=== PATIENT | female | born 1980 | race Caucasian/White ===

== ENCOUNTER 2022-01-12 02:56 | Day surgery (SDC) | payer BC, SELFPAY ==
[2021-12-31 15:03] VITALS: BMI 40.7
--- NOTE | 2022-01-10 12:26 | WPDANESEPPF ---
Anes - Initial Pre Proc Eval Procedure: Operation Date: 01/12/22 11:30 Proposed Procedures p Screening Colonoscopy - Misael Valiente MD Date/Time: 01/10/22 12:26 Surgeon: Misael Valiente MD Pre Op Diagnosis: family hx of colon ca, neoplasm screening Patient Data Age: 41 Gender: F Height: 1.7 m Weight: 118 kg Allergies Allergy/AdvReac Type Severity Reaction Status Date / Time adhesive tape Allergy Intermediate Rash Verified 01/12/22 10:55 NSAIDS (Non-Steroidal Allergy Unknown Unknown Verified 01/12/22 10:55 Anti-Inflamma Home Medications Medication Instructions Recorded Confirmed Type levothyroxine 25 mcg tablet 25 mcg PO DAILY 10/03/19 12/31/21 History jhcnszxe-hgdyzknb-ygqu 45 mg-folic 1 cap PO DAILY #90 cap 11/27/19 12/31/21 Rx acid 800 mcg-vit K 120 mcg capsule rizatriptan 10 mg tablet See Rx Instructions PO .COMPLEX #9 01/16/21 12/31/21 Rx tablet omeprazole 20 mg capsule,delayed 20 mg PO DAILY #90 cap 01/27/21 12/31/21 Rx release methocarbamol 750 mg tablet 750 mg PO QID PRN #120 tablet 04/03/21 12/31/21 Rx hydrocodone 5 mg-acetaminophen 325 1 tablet PO Q6-8H PRN #45 tablet 08/05/21 12/31/21 Rx mg tablet gabapentin 100 mg capsule 100 mg PO TID cap 08/15/21 12/31/21 History buspirone 15 mg tablet See Rx Instructions .ROUTE 09/08/21 12/31/21 Rx .COMPLEX #270 tablet fluoxetine 40 mg capsule See Rx Instructions .ROUTE 10/03/21 12/31/21 Rx .COMPLEX #90 cap clindamycin 1 %-benzoyl peroxide 5 1 applic TOPICAL BID #25 g 10/30/21 12/31/21 Rx % topical gel bupropion HCl [Wellbutrin XL] 150 mg PO DAILY 12/31/21 12/31/21 History Patient hx anesthesia problems: none Family hx anesthesia problems: none Results Review: All pre-operative results and documents have been reviewed as part of the pre-operative evaluation. [facility] Past Medical History Medical History (Updated 01/11/22 @ 10:43 by Misael Valiente MD) Anxiety and depression Body mass index (BMI) of 40.1 to 44.9 in adult Hypothyroidism, unspecified Irregular heartbeat Mitral valve regurgitation Tobacco abuse Surgical History Surgical History (Updated 01/10/22 @ 12:27 by Jake Harris DO) History of appendectomy History of cholecystectomy History of lumbar fusion History of sleeve gastrectomy Family History Family History Father Family history of heart disease in male family member before age 55 Depression Family history of alcoholism Grandparent Family history of heart disease in male family member before age 55 Family history of cataracts Family history of congestive heart failure Diabetes mellitus Mother Depression Family history of arthritis Uterine carcinoma Sibling Asthma Breast cancer Cervical cancer Sibling Narcolepsy Social History Social History Smoking packs per day: 1 Smoking cigarettes per day: 20.0 Years smoked: 5 Smoking pack-years: 5.00 Smoking status: Current every day smoker Tobacco type: cigarettes Second hand tobacco smoke exposure: Yes Alcohol intake: former Substance use: current Substance use type: marijuana Living arrangements: alone 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 Gender identity (if verbalized by the patient): Female Spiritual care concerns: No Agree to blood products: Yes Anes - Eval Final PreProcedure Day of Procedure 01/10/22 12:26 Patient weight: morbidly obese Heart: regular rate and rhythm Lungs: clear to auscultation and normal air movement Airway: Mallampati scale class II Neurological: alert and oriented Last oral intake: >/= 8 hours ASA classification: III Emergent: no Anesthetic plan: proceed Anesthesia type and monitoring: general GIVS and standard monitoring Results Review: All pre-operative results and documents have been reviewed as part of
--- NOTE | 2022-01-11 10:41 | PM.HPGS ---
History of Present Illness History of Present Illness Consent: Risks, benefits, and alternatives have been discussed and questions answered. Patient agrees to proceed with procedure. Chief complaint: family hx of colon ca, neoplasm screening Narrative: Nereida Regan is a 41 year old female referered for colon cancer screening. She has a family history of colon cancer, her sister who was a few years older recently from stage IV colon cancer Review of Systems Review of Systems: All systems reviewed & are unremarkable except as noted in HPI and below PMFSH Past Medical History Medical History (Updated 01/11/22 @ 10:43 by Misael Valiente MD) Anxiety and depression Body mass index (BMI) of 40.1 to 44.9 in adult Hypothyroidism, unspecified Irregular heartbeat Mitral valve regurgitation Tobacco abuse Surgical History Surgical History (Updated 01/10/22 @ 12:27 by Jake Harris DO) History of appendectomy History of cholecystectomy History of lumbar fusion History of sleeve gastrectomy Family History Family History Father Family history of heart disease in male family member before age 55 Depression Family history of alcoholism Grandparent Family history of heart disease in male family member before age 55 Family history of cataracts Family history of congestive heart failure Diabetes mellitus Mother Depression Family history of arthritis Uterine carcinoma Sibling Asthma Breast cancer Cervical cancer Sibling Narcolepsy Social History Social History Smoking packs per day: 1 Smoking cigarettes per day: 20.0 Years smoked: 5 Smoking pack-years: 5.00 Smoking status: Current every day smoker Tobacco type: cigarettes Second hand tobacco smoke exposure: Yes Alcohol intake: former Substance use: current Substance use type: marijuana Living arrangements: alone 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 Gender identity (if verbalized by the patient): Female Spiritual care concerns: No Agree to blood products: Yes Meds Home Medications and Allergies Home Medications Medication Instructions Recorded Confirmed Type levothyroxine 25 mcg tablet 25 mcg PO DAILY 10/03/19 12/31/21 History wyqvellu-vomijsqe-iaze 45 mg-folic 1 cap PO DAILY #90 cap 11/27/19 12/31/21 Rx acid 800 mcg-vit K 120 mcg capsule rizatriptan 10 mg tablet See Rx Instructions PO .COMPLEX #9 01/16/21 12/31/21 Rx tablet omeprazole 20 mg capsule,delayed 20 mg PO DAILY #90 cap 01/27/21 12/31/21 Rx release methocarbamol 750 mg tablet 750 mg PO QID PRN #120 tablet 04/03/21 12/31/21 Rx hydrocodone 5 mg-acetaminophen 325 1 tablet PO Q6-8H PRN #45 tablet 08/05/21 12/31/21 Rx mg tablet gabapentin 100 mg capsule 100 mg PO TID cap 08/15/21 12/31/21 History buspirone 15 mg tablet See Rx Instructions .ROUTE 09/08/21 12/31/21 Rx .COMPLEX #270 tablet fluoxetine 40 mg capsule See Rx Instructions .ROUTE 10/03/21 12/31/21 Rx .COMPLEX #90 cap clindamycin 1 %-benzoyl peroxide 5 1 applic TOPICAL BID #25 g 10/30/21 12/31/21 Rx % topical gel bupropion HCl [Wellbutrin XL] 150 mg PO DAILY 12/31/21 12/31/21 History Allergies Allergy/AdvReac Type Severity Reaction Status Date / Time adhesive tape Allergy Intermediate Rash Verified 01/12/22 10:55 NSAIDS (Non-Steroidal Allergy Unknown Unknown Verified 01/12/22 10:55 Anti-Inflamma Exam Const: General: alert Orientation/consciousness: patient oriented x3 Resp: Auscultation: clear to auscultation bilaterally Cardio: Rhythm: regular rhythm GI: GI Palp: Yes Soft to palpation and No Tenderness to palpation present (GI) Neuro: General: patient oriented x3 Assessment and Plan Assessment and plan (1) Colon cancer screening: Code(s): Z12.11 - Encounter for screening for malig
[2022-01-12 10:56] VITALS: BP 120/84; PULSE 79; RESP 16; TEMP 36.1; O2SAT 96
[2022-01-12] MEDS: LACTATED RINGERS 1,000 ML 150 ML IV CONT (11:11)
[2022-01-12 11:58] VITALS: BP 96/44; PULSE 64; RESP 16; O2SAT 95
[2022-01-12 12:08] VITALS: BP 91/54; PULSE 63; RESP 16; O2SAT 95
[2022-01-12 12:17] VITALS: BP 107/54; PULSE 72; RESP 16; O2SAT 98
== END 2022-01-12 12:36 | disposition home or self-care (01) ==
PROVIDERS: PCP Family Medicine; Visit Provider Internal Medicine Gastroenterology
PROC: 0DJD8ZZ Inspection of Lower Intestinal Tract, Via Natural or Artificial Opening Endoscopic (ICD-10-PCS; CPT 45378; principal; 2022-01-12 11:30)
DX: Z12.11 Encounter for screening for malignant neoplasm of colon (principal); K63.5 Polyp of colon; K57.30 Diverticulosis of large intestine without perforation or abscess without bleeding; Z80.0 Family history of malignant neoplasm of digestive organs; E03.9 Hypothyroidism, unspecified; F41.8 Other specified anxiety disorders; Z98.1 Arthrodesis status; Z98.84 Bariatric surgery status; F17.210 Nicotine dependence, cigarettes, uncomplicated; E66.01 Morbid (severe) obesity due to excess calories; Z68.37 Body mass index [BMI] 37.0-37.9, adult
CPT/HCPCS: 45385; 45380; 88305; J2704; J7120

== ENCOUNTER 2024-04-03 14:41 | Outpatient (CLI) | payer OTHER, SELFPAY ==
--- NOTE | ~2024-04-03 | XR_ITS ---
3 VIEWS LUMBAR SPINE Ordering provider: JEMMA Vizcarra History: . S39.92XA - Unspecified injury of lower back, initial enco... . Comparison: None. FINDINGS: VERTEBRAL BODIES:Minimal anterolisthesis at the level of L4-L5. No visible fracture or subluxation. Postoperative changes of the level of L4-L5. Fracture of the screws of the level of L4 and L5 is note d. DISK SPACES: Disc spacer at the level of L4-L5. Degenerative disc disease at the level of L5-S1. Narr owing of the disc at L2-L3 and L3-L4. SOFT TISSUES: Normal. IMPRESSION: No acute osseous abnormality lumbar spine. Fracture of the screws at the level of L4 and L5. Reviewed, dictated and finalized at location A.
== END 2024-04-03 14:42 ==
PROVIDERS: PCP Family Medicine; Visit Provider Nurse Practitioner Family
DX: S39.92XA Unspecified injury of lower back, initial encounter (principal); X58.XXXA Exposure to other specified factors, initial encounter
CPT/HCPCS: 72114

== ENCOUNTER 2025-01-24 01:10 | Day surgery (SDC) | payer BC, SELFPAY ==
[2025-01-23 10:35] VITALS: BMI 43.9
--- OUTSIDE RECORDS SUMMARY | 2025-01-24 01:14 | XMS_ITS | Encounter Summary ---
Author Organization [facility] Address [address] [place] [address] Phone Care Team Providers Care Operating Room Orderly Name Role Phone Arnulfo Monreal MD Unavailable [phone] Ruiz Live MD Primary Care Provider [phone] Andrew Christian MD Primary Care Provider [phone] Reason for Visit * Reason Comments Medication Refill Encounter Details Date Type Department Care Team (Late Contact Info) Description 11/28/2022 Refill [facility] - Family Medicine [facility] [address] [place] [address] Imtiaz Perez APRN, LEAD VULCANIZING OPERATOR [address] [address] Medication Refill Social History Tobacco Use Types Packs/Day Years Used Date Smoking Tobacco: Every Day Cigarettes 1 6 Smokeless Tobacco: Never Comments:pt states quit abou t a month ago Alcohol Use Standard Drinks/Week Comments Not Currently 3 (1 standard drink = 0.6 oz pur e alcohol) occasionally Education Answer Date Recorded What is the highest level of school you have completed or the highest degree you have received? 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 No / Unsure 12/01/2022 2:30 PM DECK ENGINE OPERATOR documented as of this encounter Miscellaneous Notes * Telephone Encounter - Kathy Villa RN - 11/30/2022 9:21 AM CST SIG has changed - need new Rx for continuation Medication failed the protocol, provider to review and approve the medication order if appropriate. Requested Prescriptions Pending Prescriptions Disp Refills varenicline (CHANTIX) 1 MG Tablet [Pharmacy Med Name: VARENICLINE 1 MG TABLET] 30 Tablet 1 Sig: Ttake 0.5 tablet by mouth twice daily thereafter. Not Delegated - Smoking Deterrents Protocol Failed - 11/28/2022 10:12 AM Failed - This refill cannot be delegated Passed - Visit with relevant provider in past 6 months or upcoming 90 days Recent Visits Date Type Provider Dept 11/09/22 Office Visit Ruiz Live MD [facility] 11/03/22 Office Visit Imtiaz Perez APRN, [facility] 10/21/22 Office Visit Imtiaz Perez APRN, [facility] 09/24/22 Office Visit Ruiz Live MD [facility] 08/28/22 Office Visit Ruiz Live MD [facility] 07/30/22 Office Visit Ruiz Live MD [facility] 07/09/22 Office Visit Ruiz Live MD [facility] 06/25/22 Office Visit Imtiaz Perez APRN, [facility] 06/18/22 Office Visit Ruiz Live MD [facility] 06/09/22 Office Visit Imtiaz Perez FLIGHT OPERATIONS SPECIALIST, LEAD VULCANIZING OPERATOR [facility] Showing recent visits within past 182 days and meeting all other requirements Today's Visits Date Type Provider Dept 11/30/22 Appointment Ruiz Live MD [facility] Showing today's visits and meeting all other requirements Future Appointments No visits were found meeting these conditions. Showing future appointments within next 90 days and meeting all other requirements ENGINE OPERATOR documented in this encounter Plan of Treatment Not on file documented as of this encounter Visit Diagnoses Diagnosis Tobacco abuse Tobacco use disorder documented in this encounter Additional Health Concerns Infection Onset Date Last Indicated Resolved Time Respiratory Rule Out - RPA 12/06/2022 12/06/2022 0 12/06/2022 3:46 PM DECK ENGINE OPERATOR documented as of this encounter Care Teams Operating Room Orderly Relationship Specialty Start Date End Date Ruiz Live MD [address] [place] [address] PCP - General Family Medicine 02/17/22 10/28/24 Andrew Christian MD [address] [place], [place] [id number] PCP - General Family Medicine 10/29/24 Arnulfo Monreal MD [address] [place] [address] Obstetrics & Gynecology 02/17/22 documented as of this encounter
--- OUTSIDE RECORDS SUMMARY | 2025-01-24 01:14 | XMS_ITS ---
Author Organization [facility] Address [address] [facility] [address] [place] [address] Care Team Providers Care Tank Truck Loader Name Role Phone Trey Crow Unavailable [phone] REASON FOR VISIT Wants to see you Social History Sex Assigned At : Social History Observation Description Sex Assigned At Female Encounters Encounter Location Date Provider Diagnosis [email or web address] [address] [facility] [address] [place] [address] 01/05/2025 Trey Crow Plan Of Treatment No Information Progress Notes * RAMÓN HUDOB: 1 (44 yo F)Acc No.[id number]:01/05/2025 Patient: RAMÓN FRITZ :1980 A ge:44 Y S ex:Female Address:[address] [place], [address] * true * Date: Generated for Jag rojas/Jd/eTransmitting on: 0 01/24/2025 01:14 AM CDT
--- OUTSIDE RECORDS SUMMARY | 2025-01-24 01:14 | XMS_ITS | Encounter Summary ---
Author Organization [facility] Address [address] [place] [address] Phone Care Team Providers Care Director Of Corporate Marketing Name Role Phone Arnulfo Monreal MD Unavailable [phone] Ruiz Live MD Primary Care Provider [phone] Andrew Christian MD Primary Care Provider [phone] Reason for Visit * Reason Comments Medication Refill Encounter Details Date Type Department Care Team (Late Contact Info) Description 01/07/2023 Refill [facility] Medical Group - Family Medicine [facility] [address] [place] [id number] Ruiz Live MD [address] [place] [address] Medication Refill Social History Tobacco Use Types Packs/Day Years Used Date Smoking Tobacco: Every Day Cigarettes 0.5 6 Smokeless Tobacco: Never Comments:pt states quit abou t a month ago Alcohol Use Standard Drinks/Week Comments Not Currently 3 (1 standard drink = 0.6 oz pur e alcohol) occasionally Education Answer Date Recorded What is the highest level of school you have completed or the highest degree you have received? Master's degree (e.g., MA, MS, Can, MEd, TRAINING EXECUTIVE, CHAVEZ) 02/17/2022 Sexually Active Control Partners Comments [...] suspected to have Coronavirus/COVID-19? No / Unsure 01/10/2023 7:47 PM CDT documented as of this encounter Miscellaneous Notes * Telephone Encounter - Flora Molina RN - 01/07/2023 8:35 AM CDT Medication failed the protocol, provider to review and approve the medication order if appropriate. Requested Prescriptions Pending Prescriptions Disp Refills traZODone (DESYREL) 100 MG Tablet [Pharmacy Med Name: TRAZODONE 100 MG TABLET] 90 Tablet 0 Sig: Take 1 Tablet by mouth nightly. Serotonin Modulators (6 Month Refill Only) Protocol Failed - 01/07/2023 12:01 AM Failed - Patient has established therapy with Serotonin Modulators for at least 6 months Passed - Visit with relevant provider in past 6 months or upcoming 90 days Recent Visits Date Type Provider Dept 12/22/22 Telemedicine Imtiaz Perez APRN, [facility] 12/10/22 Office Visit Ruiz Live MD [facility] 11/30/22 Office Visit Ruiz Live MD [facility] 11/09/22 Office Visit Ruiz Live MD [facility] 11/03/22 Office Visit Imtiaz Perez APRN, [facility] 10/21/22 Office Visit Imtiaz Perez APRN, [facility] 09/24/22 Office Visit Ruiz Live MD [facility] 08/28/22 Office Visit Ruiz Live MD [facility] 07/30/22 Office Visit Ruiz Live MD [facility] 07/09/22 Office Visit Ruiz Live MD [facility] Showing recent visits within past 182 days and meeting all other requirements Future Appointments Date Type Provider Dept 03/01/23 Appointment Ruiz Live MD [facility] Showing future appointments within next 90 days and meeting all other requirements Passed - Has an encounter in the past 6 months with a depression or anxiety visit diagnosis Passed - No PRN Use for Trazodone documented in this encounter Plan of Treatment Not on file documented as of this encounter Visit Diagnoses Not on filedocumented in this encounter Care Teams Director Of Corporate Marketing Relationship Specialty Start Date End Date Ruiz Live MD [address] [address] PCP - General Family Medicine 02/17/22 10/28/24 Andrew Christian MD [address] [place] [address] PCP - General Family Medicine 10/29/24 Arnulfo Monreal MD [address] [place] [address] Obstetrics & Gynecology 02/17/22 documented as of this encounter
--- OUTSIDE RECORDS SUMMARY | 2025-01-24 01:14 | XMS_ITS | Encounter Summary ---
Author Organization [facility] Address [address] [place] [address] Phone Care Team Providers Care Wedding Florist Name Role Phone Arnulfo Monreal MD Unavailable [phone] Ruiz Live MD Primary Care Provider [phone] Andrew Christian MD Primary Care Provider [phone] Reason for Visit * Reason Comments Medication Refill Encounter Details Date Type Department Care Team (Late Contact Info) Description 10/25/2022 Refill [facility] Medical Group - Family Medicine [facility] [address] [place] [id number] Ruiz Live MD [address] [place] [address] Medication Refill Social History Tobacco Use Types [...] Master's degree (e.g., MA, MS, Can, MEd, BUSINESS EDUCATION PROFESSOR, CHAVEZ) 02/17/2022 Sexually Active Control Partners Comments [...] suspected to have Coronavirus/COVID-19? No / Unsure 10/21/2022 9:27 AM MIXER SLAGMAN documented as of this encounter Miscellaneous Notes * Telephone Encounter - Kathy Villa RN - 10/27/2022 11:39 AM CST Medication failed the protocol, provider to review and approve the medication order if appropriate. Requested Prescriptions Pending Prescriptions Disp Refills pregabalin (LYRICA) 150 MG Capsule [Pharmacy Med Name: PREGABALIN 150 MG CAPSULE] 60 Capsule Sig: TAKE 1 CAPSULE BY MOUTH TWICE A DAY Not Delegated - Anticonvulsants Excluding Benzodiazepines Protocol Failed - 10/25/2022 5:33 PM Failed - This refill cannot be delegated Passed - Visit with relevant provider in past 12 months or upcoming 90 days Recent Visits Date Type Provider Dept 10/21/22 Office Visit Imtiaz Perez APRN, [facility] 09/24/22 Office Visit Ruiz Live MD [facility] 08/28/22 Office Visit Ruiz Live MD [facility] 07/30/22 Office Visit Ruiz Live MD [facility] 07/09/22 Office Visit Ruiz Live MD [facility] 06/25/22 Office Visit Imtiaz Perez APRN, [facility] 06/18/22 Office Visit Ruiz Live MD [facility] 06/09/22 Office Visit Imtiaz Perez APRN, [facility] 05/21/22 Office Visit Imtiaz Perez APRN, [facility] 03/30/22 Office Visit Ruiz Live MD [facility] Showing recent visits within past 365 days and meeting all other requirements Future Appointments Date Type Provider Dept 11/30/22 Appointment Ruiz Live MD [facility] Showing future appointments within next 90 days and meeting all other requirements cyclobenzaprine (FLEXERIL) 10 MG Tablet [Pharmacy Med Name: CYCLOBENZAPRINE 10 MG TABLET] 90 Tablet Sig: TAKE 1 TABLET BY MOUTH THREE TIMES A DAY NEEDED FOR MUSCLE SPASMS Not Delegated - Muscle Relaxants Protocol Failed - 10/25/2022 5:33 PM Failed - This refill cannot be delegated Passed - Visit with relevant provider in past 12 months or upcoming 90 days Recent Visits Date Type Provider Dept 10/21/22 Office Visit Imtiaz Perez APRN, [facility] 09/24/22 Office Visit Ruiz Live MD [facility] 08/28/22 Office Visit Ruiz Live MD [facility] 07/30/22 Office Visit Ruiz Live MD [facility] 07/09/22 Office Visit Ruiz Live MD [facility] 06/25/22 Office Visit Imtiaz Perez APRN, [facility] 06/18/22 Office Visit Ruiz Live MD [facility] 06/09/22 Office Visit Itmiaz Perez APRN, [facility] 05/21/22 Office Visit Imtiaz Perez APRN, [facility] 03/30/22 Office Visit Ruiz Live MD [facility] Showing recent visits within past 365 days and meeting all other requirements Future Appointments Date Type Provider Dept 11/30/22 Appointment Ruiz Live MD [facility] Showing future appointments within next 90 days and meeting all other requirements R SLAGMAN documented in this encounter Plan of Treatment Not on file documented as of this encounter Visit Diagnoses Diagnosis Lumbar radiculopathy Thoracic or lumbosacral neuritis or radiculitis, unspecified Degenerative disc disease, lumbar Degeneration of lumbar or lumbosacral intervertebral disc documented in this encounter Additional Health Concerns Infection Onset Date Last Indicated Resolved Time Respiratory Rule Out - RPA 12/06/2022 12/06/2022 0 12/06/2022 3:46 PM MIXER SLAGMAN documented as of this encounter Care Teams Wedding Florist Relationship Specialty Start Date End Date Ruiz Live MD [address] [place] [address] PCP - General Family Medicine 02/17/22 10/28/24 Andrew Christian MD [address] [place] [address] PCP - General Family Medicine 10/29/24 Arnulfo Monreal MD [address] [place] [address] Obstetrics & Gynecology 02/17/22 documented as of this encounter
--- OUTSIDE RECORDS SUMMARY | 2025-01-24 01:14 | XMS_ITS | Encounter Summary ---
Author Organization [facility] Address [address] [place] [address] Care Team Providers Care Individual Pension Adviser Name Role Phone Andrew Christian MD Primary Care Provider [phone] Ruiz Live MD Primary Care Provider [phone] Malgorzata Oliver NP Primary Care Provider [phone] Encounter Details Date Type Department Care Team (Late st Contact Info) Description 07/10/2021 Telephone [facility] [address] [place] [address] Yonathan, Arpita, RT Social History Tobacco Use Types Packs/Day Years Used Date Smoking Tobacco: Every Day Cigarettes 0.3 9.2 Started: 2016 Smokeless Tobacco: Never Alcohol Use Standard Drinks/Week Comments Yes 4 (1 standard drink = 0.6 oz pur e alcohol) rarely Comments No Sex and Gender Information Value Date Recorded Sex Assigned at Not on file Legal Sex Female 1:20 AM CITY COMPTROLLER Gender Identity Female 08/31/2020 6:45 AM CITY COMPTROLLER Sexual Orientation Bisexual 08/31/2020 6: 45 AM CITY COMPTROLLER documented as of this encounter Plan of Treatment Not on file documented as of this encounter Visit Diagnoses Not on filedocumented in this encounter Additional Health Concerns Infection Onset Date Last Indicated Resolved Time C. difficile Comment:Original Cdiff infection 02/2020, was treated at that time, not having active diarrhea. 09/28/2020 09/28/2020 04/06/2022 2 :23 PM CDT documented as of this encounter Care Teams Individual Pension Adviser Relationship Specialty Start Date End Date Andrew Christian MD PCP - General 11/26/14 11/29/22 Ruiz Live MD [address] [address] PCP - General Family Medicine 11/30/22 04/12/24 Malgorzata Oliver NP [address] [place] [address] PCP - General Nurse Practitioner 04/13/24 documented as of this encounter
--- OUTSIDE RECORDS SUMMARY | 2025-01-24 01:14 | XMS_ITS | Patient Health Record ---
Author Organization [facility] Address [address] [facility] [place] [address] Care Team Providers Care Optical Goods Drill Operator Name Role Phone ROLANDA BAUMAN MD Primary Care Provider My olegario Peter Palmer Unavailable [phone] ALLERGIES Allergen (clinical drug ingredient) Drug/Non Drug Allergy documented on EMR Reaction Allergy Type Onset Date Status Adhesive Rash Allergy Active REASON FOR REFERRAL No Information MEDICATIONS Medication SIG (Take, Route, Fr equency, Duration) Notes Start Date End Date Status Cymbalta 60 MG 1 capsule Orally Once a day Active SEROquel 25 MG 1 tablet at bedtime Orally Once a day for 30 day(s) Active CeleBREX 200 MG 1 capsule with food Orally Twice a day Active Baclofen 10 MG 1 tablet as needed O rally Three times a day Active Pregabalin 150 MG 1 capsule Orally Twice a day Active Percocet 10-325 MG 1 tablet as needed O rally every 4 hrs Active Omeprazole 20 MG 1 capsule 30 minutes before morning meal Orally Once a day for 30 day(s) Active Vilazodone HCl 40 MG 1 tablet with food Orally Once a day for 30 day(s) Active PROBLEMS Problem Type ICD Code Onset Dates Problem Status W/U Status Risk SNOMED Code Notes Problem Intervertebral disc disorders with radiculopathy, lumbar region (M51.16) Active confirmed Radiculopathy d ue to lumbar intervertebral disc disorder (285477835750006) Problem Radiculopathy, lumbar region (M54.16) Active confirmed Lumbar radiculopathy (439899583) Problem Postlaminectomy syndrome, not elsewhere classified (M96.1) Active confirmed Post-lami nectomy syndrome (51924559) Problem 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) Active confirmed Spinal stenosis of lumbar region (30125989) Problem 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 (Z79.891) Active confirmed High risk drug monitoring status (926182301) PLAN OF TREATMENT No Information Insurance Providers Payer Name Payer Address Payer Phone Subscriber Number Group Number Insured Name Patient Relationship to Insured Coverage Start Date Coverage End Date [employer] [address] [address] [facility], [place] [address] [id number] RAMÓN HU Self - patient is the insured MEDICAL (GENERAL) HISTORY Medical History History ICD Code GERD Fibromyalgia Depression Anxiety Osteoarthritis Migraines Surgical History Surgery Date(Month/Year) L4-5 Fusion 2019 Gastric Sleeve 2014 Partial hysterectomy 2014 Left total hip arthroplasty 2021
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
--- OUTSIDE RECORDS SUMMARY | 2025-01-24 01:14 | XMS_ITS | Referral Summary ---
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 07/25 Chronic [...] Vaccination (12+ Y RS) 07/11/2021,06/13/2021 Tdap 03/22/2017 Social History Tobacco Use Types Packs/Day Years [...] on file Legal Sex Female 1:20 AM INS[employer] Gender Identity Female 08/31/2020 6:45 AM INS[employer] Sexual Orientation Bisexual 08/31/2020 6: 45 AM INSPECTOR [employer]ACILITIES 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 Author [facility] No Krista Waite, RN Note: To quit smoking and lose weight to have left hip replacement surgery Medical Devices Implanted Type Area Construction Mgr Device Identifier Shelf Expiration Date Model / Serial / Lot [employer] G7 50mm Multihole Hip D Hemisphere Offset Shell Acetabular [id number] - [id number] Implanted:Qty: 1 on 04/06/2022 by Lizeth Wagner MD at [facility] Left: Hip [employer] [id number] 01/29/2032 [id number] / / [id number] [employer] Trilogy 6.5mm 25mm Self Tap Screw Bone [id number] - [id number] Implanted:Qty: 1 on 04/06/2022 by Lizeth Wagner MD at [facility] Left: Hip [employer] [id number] 01/25/2032 [id number] / / [id number] [employer] Trilogy 6.5mm 25mm Self Tap Screw Bone [id number] - [id number] Implanted:Qty: 1 on 04/06/2022 by Lizeth Wagner MD at [facility] Left: Hip [employer] [id number] 11/15/2031 [id number] / / [id number] [employer] Trilogy 6.5mm 30mm Self Tap Acetabular Cortical Screw Bone [id number] - [id number] Implanted:Qty: 1 on 04/06/2022 by Lizeth Wagner MD at [facility] Left: Hip [employer] [id number] 02/11/2032 [id number] / / [id number] [employer] G7 40mm 2 Mobility Hip D Liner Acetabular Cocr [id number] - [id number] Implanted:Qty: 1 on 04/06/2022 by Lizeth Wagner MD at [facility] Left: Hip [employer] [id number] 03/03/2032 [id number] / / [id number] [employer] [place] Cone Prosthesis 17mm 126.2mm Primary Hip 135d 31.8mm 10/07 [id number] - [id number] Implanted:Qty: 1 on 04/06/2022 by Lizeth Wagner MD at [facility] Left: Hip [employer] [id number] 03/24/2024 [id number] / / [id number] [employer] [id number] 40mm 28mm Lumen Hip D Liner Acetabular Longevity Sterile Latex - [id number] Implanted:Qty: 1 on 04/06/2022 by Lizeth Wagner MD at [facility] Left: Hip [employer] [id number] 01/31/2027 [id number] / / [id number] [employer] Trilogy It Continuum 28mm Hip Acetabulum +0mm 12/14 Medium Head [id number] - [id number] Implanted:Qty: 1 on 04/06/2022 by Lizeth Wagner MD at [facility] Left: Hip [employer] [id number] 07/31/2031 [id number] / / [id number] Procedures Procedure Name Priority Date/Time Associated Diagnosis Comments SCREENING MAMMOGRAM BILATERAL W JAIDEN Schedule Routine, Read Routine (OP Routine) 12/28/2022 3:09 PM INSPECTOR [employer]ARE [employer]ACILITIES Screening mammogram, encounter for EGFR Routine 04/07/2022 3:38 AM CDT POCT HEMOGLOBIN A1C Routine 03/12/2022 4:41 PM CDT from Last 3 Months or Most Recently Relevant to Health Maintenance Results * Screening Mammogram Bilateral W Jaiden (12/28/2022 3:09 PM INS[facility] [employer]ILITIES) Anatomical Region Laterality Modality Breast Bilateral Mammography 12/28/2022 3:15 PM [facility]IES Impressions 12/28/2022 3:15 PM [employer]ACILITIES There is no mammographic evidence of malignancy. A 1 year screening mammogram is recommended. BI-RADS: 1 - Negative. The patient has been or will be contacted. The patient will be entered into a reminder system with a target due date of 1 year for her next mammogram. Electronically signed by: Dima Becker M.D. Narrative 12/28/2022 3:15 PM [facility] [employer]ACILITIES EXAMINATION: SCREENING MAMMOGRAM BILATERAL W JAIDEN ORDERING [...] BLOOD ORDERABLES Final Result Performing Organization Address City/State/[facility] Co de Phone Number [facility] [address] [facility] [address] [place], [place] [id number] * POCT hemoglobin A1c (03/12/2022 4:41 PM CDT) Hgb A1C, POC 5.2 4.0 - 5.6 % [facility] Est Average Gluc POC 103 mg/dL [facility]FF[facility] Comment: The ADA recommends reporting an estimated Average Glucose (eAG) with all Hemoglobin A1c results using the equation derived from a study of 507 normal and diabetic adults. Minority populations were underrepresented and children were not included. (Diabetes Care 31:5915-9457, 2008). The eAG is not equivalent to a fasting glucose. Blood 03/12/2022 4:41 PM CDT 03/12/2022 4:41 PM CDT Lizeth Gray MD POINT OF CARE TEST OR DERABLES Final Result [facility] Department [place] [address] from Last 3 Months or Most Recently Relevant to Health Maintenance Insurance Mobile Authentication [place] [employer] [facility] Advance Directives For more information, please contact: [phone] * Full Code (Latest Code Status on File) Date Activated Date Inactivated Comments 04/06/2022 11:27 AM 04/07/2022 3:32 PM * Full Code Date Activated Date Inactivated Comments 08/24/2020 9:43 PM 08/30/2020 7:59 PM Care Teams Jig Bore Operator Relationship Specialty Start Date End Date Malgorzata Oliver NP [address] [address] PCP - General Nurse Practitioner 04/13/24
--- OUTSIDE RECORDS SUMMARY | 2025-01-24 01:15 | XMS_ITS | Encounter Summary ---
Author Organization [facility] Address [address] [place] [address] Phone Care Team Providers Care Global Account Manager Name Role Phone Arnulfo Monreal MD Unavailable [phone] Ruiz Live MD Primary Care Provider [phone] Andrew Christian MD Primary Care Provider [phone] Reason for Visit * Reason Comments Medication Refill Encounter Details Date Type Department Care Team (Late st Contact Info) Description 02/16/2024 Refill [facility] Medical Group - Family Medicine [facility] [address] [place] [address] Ruiz Live MD [address] [place] [address] Medication Refill Social History Tobacco Use Types Packs/Day Years Used Date Smoking Tobacco: Every Day Cigarettes 0.5 6 Smokeless Tobacco: Never Comments:pt states quit abou t a month ago Alcohol Use Standard Drinks/Week Comments Not Currently 3 (1 standard drink = 0.6 oz pur e alcohol) Occasionally C Utilities Answer Date Recorded In the past 12 months has e electric, gas, oil, or water company threatened to shut off services in your home? Yes 11/12/2023 Social Connection and Isolat ion Panel [NHANES] Answer Date Recorded In a typical week, how many times do you talk on the phone with family, friends, or neighbors? More than three times a week 11/12/2023 How often do you get togethe r with friends or relatives? Once a week 11/12/2023 How often do you attend chur ch or episcopal services? Never 11/12/2023 Do you belong to any clubs o r organizations such as baptism groups, unions, fraternal or athletic groups, or school groups? No 11/12/2023 How often do you attend meet ings of the clubs or organizations you belong to? Never 11/12/2023 Are you , , di vorced, , never , or living with a partner? Never 11/12/2023 AUDIT-C Answer Date Recorded Q1: How often do you have a drink containing alc ohol? Monthly or less 11/12/2023 Q2: How many drinks containi ng alcohol do you have on a typical day when you are drinking? 3 or 4 11/12/2023 Q3: How often do you have si x or more drinks on one occasion? Never 11/12/2023 Overall Financial Resource Strain (CARDIA) Answe r Date Recorded How hard is it for you to pa y for the very basics like food, housing, medical care, and heating? Very hard 11/12/2023 [facility] - Occupational Stress Questionnaire Answer Date Recorded Do you feel stress - tense, restless, nervous, or anxious, or unable to sleep at night because your mind is troubled all the time - these days? Very much 11/12/2023 Exercise Vital Sign Answer Date Recorde d On average, how many days pe r week do you engage in moderate to strenuous exercise (like a brisk walk)? 2 days 11/12/2023 On average, how many minutes do you engage in exercise at this level? 30 min 11/12/2023 Hunger Vital Sign Answer Date Recorded Within the past 12 months, y ou worried that your food would run out before you got the money to buy more. Sometimes true Within the past 12 months, t he food you bought just didn't last and you didn't have money to get more. Sometimes true PRAPARE - Transportation Answer Date Re corded In the past 12 months, has l ack of transportation kept you from medical appointments or from getting medications? No 10/25 In the past 12 months, has l ack of transportation kept you from meetings, work, or from getting things needed for daily living? No 11/12/2023 Housing Stability Vital Sign Answer Tesfaye e Recorded In the last 12 months, was t here a time when you were not able to pay the mortgage or rent on time? Yes 11/12/2023 In the last 12 months, how many places have you lived? 1 11/12/2023 In the last 12 months, was t here a time when you did not have a steady place to sleep or slept in a long term (including now)? No 11/12/2023 Education Answer Date Recorded What is the highest level of school you have completed or the highest degree you have received? 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 Requested Prescriptions Pending Prescriptions Disp Refills baclofen (LIORESAL) 10 MG Tablet [Pharmacy Med Name: BACLOFEN 10 MG TABLET] 90 Tablet 0 Sig: TAKE 1 TABLET BY MOUTH THREE TIMES A DAY Not Delegated - Muscle Relaxants Protocol Failed - 02/16/2024 3:06 PM Failed - This refill cannot be delegated Passed - Visit with relevant provider in past 12 months or upcoming 90 days Recent Visits Date Type Provider Dept 11/23/23 Office Visit Fang Downs APRN, DIRECTOR OF MATERNITY SERVICES [facility] [place] 11/17/23 Office Visit Imtiaz Perez APRN, [facility] 09/15/23 Office Visit Imtiaz Perez APRN, [facility] 07/13/23 Office Visit Ruiz Live MD [facility] 07/08/23 Telemedicine Ruiz Live MD [facility] 06/17/23 Office Visit Imtiaz Perez APRN, [facility] 04/13/23 Office Visit Imtiaz Perez APRN, DIRECTOR OF MATERNITY SERVICES [facility] 04/05/23 Office Visit Imtiaz Perez APRN, [facility] 03/01/23 Office Visit Ruiz Live MD [facility] Showing recent visits within past 365 days and meeting all other requirements Future Appointments Date Type Provider Dept 02/22/24 Appointment Imtiaz Perez APRN, [facility] 03/16/24 Appointment Ruiz Live MD [facility] Showing future appointments within next 90 days and meeting all other requirements documented in this encounter Plan of Treatment Not on file documented as of this encounter Visit Diagnoses Diagnosis Chronic pain syndrome documented in this encounter Care Teams Global Account Manager Relationship Specialty Start Date End Date Ruiz Live MD [address] [place] [address] PCP - General Family Medicine 02/17/22 10/28/24 Andrew Christian MD [address] [address] PCP - General Family Medicine 10/29/24 Arnulfo Monreal MD [address] [place] [address] Obstetrics & Gynecology 02/17/22 documented as of this encounter
--- OUTSIDE RECORDS SUMMARY | 2025-01-24 01:15 | XMS_ITS | Encounter Summary ---
Author Organization [facility] Address [address] [place] [address] Care Team Providers Care Gas Station Operator Name Role Phone Andrew Christian MD Primary Care Provider [phone] Constanza Avitia RN Unavailable [phone] Issac Woods MD Unavailable Issac Woods MD Unavailable Ruiz Live MD Primary Care Provider [phone] Andrew Christian MD Primary Care Provider [phone] Encounter Details Date Type Department Care Team (Late st Contact Info) Description 10/02/2019 [facility] Outpatient Visit [facility] [address] [place] [address] [place] [address] [address] Social History Tobacco Use Types Packs/Day Years Used Date Smoking Tobacco: Former Cigarettes Q uit: 09/24/2009 Smokeless Tobacco: Never Alcohol Use Standard Drinks/Week Comments Yes 0 (1 standard drink = 0.6 oz pur e alcohol) Sex and Gender Information Value Date Recorded Sex Assigned at Not on file Gender Identity Not on file Sexual Orientation Not on file documented as of this encounter Functional Status Functional Status Response Date of Assess ment Is person deaf or have serious hearing difficult y? No 07/11/2016 Is person blind or have serious difficulty seein g? No 07/11/2016 Does person have serious dif ficulty walking/climbing stairs? No 07/11/2016 Does person have difficulty dressing/bathing? No 07/11/2016 Does person have difficulty doing errands alone? No 07/11/2016 Cognitive Status Response Date of Assessm ent Does person have difficulty concentrating/remembering/making decisions? No 07/11/2016 documented as of this encounter Plan of Treatment Not on file documented as of this encounter Visit Diagnoses Not on filedocumented in this encounter Care Teams Gas Station Operator Relationship Specialty Start Date End Date Andrew Christian MD [address] [place] [address] PCP - General Family Medicine 11/30/14 04/07/23 Ruiz Live MD [address] [place] [address] PCP - General Family Medicine 04/08/23 09/19/24 Andrew Christian MD [address] [place] [address] PCP - General Family Medicine 09/20/24 Constanza Avitia, RN Search Engine Optimization Specialist 03/25/15 05/18/23 [place] [address] [place] [address] Rheumatology 08/11/22 [place] [address] [place] [address] Rheumatology 08/11/22 documented as of this encounter
--- OUTSIDE RECORDS SUMMARY | 2025-01-24 01:15 | XMS_ITS | Encounter Summary ---
Author Organization [facility] Address [address] [place] [address] Phone Care Team Providers Care Director Corporate Communications Name Role Phone Arnulfo Monreal MD Unavailable [phone] Ruiz Live MD Primary Care Provider [phone] Andrew Christian MD Primary Care Provider [phone] Reason for Visit * Reason Comments Medication Refill Encounter Details Date Type Department Care Team (Late st Contact Info) Description 12/20/2023 Refill [facility] Medical Group - Family Medicine [facility] [address] [place] [address] Ruiz Live MD [address] [place] [address] Medication Refill Social History Tobacco Use Types [...] often do you attend chur ch or restoration services? Never 11/12/2023 Do you belong to any clubs o r organizations such as mosque groups, unions, fraternal or athletic groups, or [...] medical care, and heating? Very hard 11/12/2023 [facility] - Occupational [...] place to sleep or slept in a fci (including now)? No 11/12/2023 Education Answer Date Recorded What is the highest level of school you have completed or the highest degree you have received? Master's degree (e.g., MA, MS, Can, MEd, ANALYTICAL CHEMISTRY TEACHER, CHAVEZ) 02/17/2022 Sexually Active Control Partners Comments [...] Telephone Encounter - Kathy Villa RN - 12/21/2023 8:13 AM CST Medication failed the protocol, provider to review and approve the medication order if appropriate. Requested Prescriptions Pending Prescriptions Disp Refills baclofen (LIORESAL) 10 MG Tablet [Pharmacy Med Name: BACLOFEN 10 MG TABLET] 90 Tablet 0 Sig: TAKE 1 TABLET BY MOUTH THREE TIMES A DAY Not Delegated - Muscle Relaxants Protocol Failed - 12/20/2023 10:26 AM Failed - This refill cannot be delegated Passed - Visit with relevant provider in past 12 months or upcoming 90 days Recent Visits Date Type Provider Dept 11/23/23 Office Visit Fang Downs APRN, SUPERVISOR ENGINE REPAIR [facility] 11/17/23 Office Visit Imtiaz Perez APRN, SUPERVISOR ENGINE REPAIR [facility] 09/15/23 Office Visit Imtiaz Perez APRN, SUPERVISOR ENGINE REPAIR [facility] 07/13/23 Office Visit Ruiz Live MD [facility] 07/08/23 Telemedicine Ruiz Live MD [facility] 06/17/23 Office Visit Imtiaz Perez APRN, SUPERVISOR ENGINE REPAIR [facility] 04/13/23 Office Visit Imtiaz Perez APRN, SUPERVISOR ENGINE REPAIR [facility] 04/05/23 Office Visit Imtiaz Perez APRN, SUPERVISOR ENGINE REPAIR [facility] 03/01/23 Office Visit Ruiz Live MD [facility] 02/15/23 Telemedicine Ruiz Live MD [facility] Showing recent visits within past 365 days and meeting all other requirements Future Appointments Date Type Provider Dept 03/16/24 Appointment Ruiz Live MD [facility] Showing future appointments within next 90 days and meeting all other requirements CY SERVICE REPRESENTATIVE documented in this encounter Plan of Treatment Not on file documented as of this encounter Visit Diagnoses Diagnosis Chronic pain syndrome documented in this encounter Care Teams Director Corporate Communications Relationship Specialty Start Date End Date Ruiz Live MD [address] [address] PCP - General Family Medicine 02/17/22 10/28/24 Andrew Christian MD [address] [address] PCP - General Family Medicine 10/29/24 Arnulfo Monreal MD [address] [place] [address] Obstetrics & Gynecology 02/17/22 documented as of this encounter
--- OUTSIDE RECORDS SUMMARY | 2025-01-24 01:15 | XMS_ITS | Encounter Summary ---
Author Organization [facility] Address [address] [place] [address] Phone Care Team Providers Care Musical Instrument Maker Or Repairer Name Role Phone Arnulfo Monreal MD Unavailable [phone] Ruiz Live MD Primary Care Provider Andrew Christian MD Primary Care Provider [phone] Reason for Visit * Reason Comments Medication Refill Encounter Details Date Type Department Care Team (Late Contact Info) Description [address] [facility] Medical Group - Family Medicine [facility] [address] [place] [id number] Ruiz Live MD [address] [place] [address] Medication Refill Social History Tobacco Use Types Packs/Day Years Used Date Smoking Tobacco: Every Day Cigarettes 0.5 6 Smokeless Tobacco: Never Comments:pt states quit abou t a month ago Alcohol Use Standard Drinks/Week Comments Not Currently 3 (1 standard drink = 0.6 oz pur e alcohol) Occasionally Education Answer Date Recorded What is the highest level of school you have completed or the highest degree you have received? Master's degree (e.g., MA, MS, Can, MEd, SELF STORAGE MANAGER, CHAVEZ) 02/17/2022 Sexually Active Control Partners Comments [...] suspected to have Coronavirus/COVID-19? No / Unsure 07/08/2023 9:14 AM CDT documented as of this encounter Miscellaneous Notes * Telephone Encounter - Reshma Harley RN - 2023 2:12 PM CDT Per PDMP and MEDD, most recently dispensed to patient on 06/28/23 as 30-day supply. Too early to refill. documented in this encounter Plan of Treatment Not on file documented as of this encounter Visit Diagnoses Diagnosis Chronic pain syndrome documented in this encounter Care Teams Musical Instrument Maker Or Repairer Relationship Specialty Start Date End Date Ruiz Live MD [address] [address] PCP - General Family Medicine 02/17/22 10/28/24 Andrew Christian MD [address] [place] [address] PCP - General Family Medicine 10/29/24 Arnulfo Monreal MD [address] [place] [address] Obstetrics & Gynecology 02/17/22 documented as of this encounter
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
--- OUTSIDE RECORDS SUMMARY | 2025-01-24 01:15 | XMS_ITS | Encounter Summary ---
Author Organization [facility] Address [address] [place] [address] Phone Care Team Providers Care Real Estate Portfolio Manager Name Role Phone Arnulfo Monreal MD Unavailable [phone] Ruiz Live MD Primary Care Provider Andrew Christian MD Primary Care Provider [phone] Reason for Visit * Reason Comments Medication Refill Encounter Details Date Type Department Care Team (Late Contact Info) Description 03/20/2022 Refill [facility] - Family Medicine [facility] [address] [place] [id number] Ruiz Live MD [address] [place] [address] Medication Refill Social History Tobacco Use Types Packs/Day Years Used Date Smoking Tobacco: Former Cigarettes 1 12 Smokeless Tobacco: Never Comments:pt states quit abou t a month ago Alcohol Use Standard Drinks/Week Comments Not Currently 3 (1 standard drink = 0.6 oz pur e alcohol) occasionally Education Answer Date Recorded What is the highest level of school you have completed or the highest degree you have received? Master's degree (e.g., MA, MS, Can, MEd, NUTRITIONAL ASSISTANT, CHAVEZ) 02/17/2022 Sexually Active Control Partners Comments Yes Female, Male Comments No Sex and Gender [...] suspected to have Coronavirus/COVID-19? No / Unsure 03/19/2022 2:24 PM CDT documented as of this encounter Miscellaneous Notes * Telephone Encounter - Kathy Villa RN - 03/20/2022 10:35 AM CDT PRN medication requires review from provider Per nursing clinical judgement, provider to review and approve the medication(s) order(s) if appropriate. Requested Prescriptions Pending Prescriptions Disp Refills albuterol 108 (90 Base) MCG/ACT Aerosol Solution [Pharmacy Med Name: ALBUTEROL HFA (PROAIR) INHALER] 18 g 1 Sig: INHALE 2 PUFFS BY MOUTH EVERY 4 HOURS NEEDED FOR WHEEZE Short Acting Inhaled Beta-Agonists Protocol Passed - 03/20/2022 12:00 AM Passed - Visit with relevant provider in past 12 months or upcoming 90 days Recent Visits Date Type Provider Dept 03/03/22 Office Visit Ruiz Live MD [facility] 02/17/22 Office Visit Ruiz Live MD [facility] Showing recent visits within past 365 days and meeting all other requirements Future Appointments Date Type Provider Dept 03/30/22 Appointment Ruiz Live MD [facility] Showing future appointments within next 90 days and meeting all other requirements documented in this encounter Plan of Treatment Not on file documented as of this encounter Visit Diagnoses Diagnosis Acute respiratory failure with hypoxia (HCC) Acute respiratory failure documented in this encounter Additional Health Concerns Infection Onset Date Last Indicated Resolved Time Respiratory Rule Out - RPA 12/06/2022 12/06/2022 0 12/06/2022 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
--- OUTSIDE RECORDS SUMMARY | 2025-01-24 01:15 | XMS_ITS ---
Author Organization [facility] [employer] [facility] Address [address] [facility] [address] [place] [address] Care Team Providers Care Project Accountant Name Role Phone Trey Crow Unavailable [phone] REASON FOR VISIT Anxiety Social History Sex Assigned At : Social History Observation Description Sex Assigned At Female Encounters Encounter Location Date Provider Diagnosis [address] [facility] [address] [place] [address] 12/20/2024 Trey Crow Plan Of Treatment No Information Progress Notes * RAMÓN HUDOB: 1 (44 yo F)Acc No.[id number]:12/20/2024 Patient: Rosa MARKJAMILY :1980 A ge:44 Y S ex:Female Address:[address] [place], [address] * true * Date: Generated for Henryi crystal/Amadog/eTransmitting on: 0 01/24/2025 01:15 AM CDT
--- OUTSIDE RECORDS SUMMARY | 2025-01-24 01:15 | XMS_ITS | Encounter Summary ---
Author Organization [facility] Address [address] [place] [address] Phone Care Team Providers Care Truckload Checker Name Role Phone Arnulfo Monreal MD Unavailable [phone] Ruiz Live MD Primary Care Provider [phone] Andrew Christian MD Primary Care Provider [phone] Reason for Visit * Reason Comments Medication Refill Encounter Details Date Type Department Care Team (Late Contact Info) Description 09/20/2022 Refill [facility] - Family Medicine [facility] [address] [place] [phone] Ruiz Live MD [address] [place] [address] Medication Refill Social History Tobacco Use Types [...] Master's degree (e.g., MA, MS, Can, MEd, OIL WELL FISHING TOOL OPERATOR, [employer]) 02/17/2022 Sexually Active Control Partners Comments [...] suspected to have Coronavirus/COVID-19? No / Unsure 09/23/2022 9:19 PM POSTAL SERVICE SECTIONAL CENTER MANAGER documented as of this encounter Miscellaneous Notes * Telephone Encounter - Flora Molina RN - 09/21/2022 8:09 AM POSTAL SERVICE SECTIONAL CENTER MANAGER Medication failed the protocol, provider to review and approve the medication order if appropriate. Requested Prescriptions Pending Prescriptions Disp Refills traZODone (DESYREL) 100 MG Tablet [Pharmacy Med Name: TRAZODONE 100 MG TABLET] 30 Tablet 0 Sig: Take 1 Tablet by mouth nightly. Serotonin Modulators (6 Month Refill Only) Protocol Failed - 09/20/2022 10:31 AM Failed - Has an encounter in the past 6 months with a depression or anxiety visit diagnosis Failed - Patient has established therapy with Serotonin Modulators for at least 6 months Passed - Visit with relevant provider in past 6 months or upcoming 90 days Recent Visits Date Type Provider Dept 08/28/22 Office Visit [facility] [...] requirements Future Appointments Date Type Provider Dept 09/29/22 Appointment Ruiz Live MD [facility] 11/30/22 Appointment Ruiz Live MD [facility] Showing future appointments within next 90 days and meeting all other requirements Passed - No PRN Use for Trazodone [place] [facility] SECTIONAL CENTER MANAGER documented in this encounter Plan of Treatment Not on file documented as of this encounter Visit Diagnoses Not on filedocumented in this encounter Additional Health Concerns Infection Onset Date Last Indicated Resolved Time Respiratory Rule Out - RPA 12/06/2022 12/06/2022 0 12/06/2022 3:46 PM POSTAL SERVICE SECTIONAL CENTER MANAGER documented as of this encounter Care Teams Truckload Checker Relationship Specialty Start Date End Date Ruiz Live MD [address] [place] [address] PCP - General Family Medicine 02/17/22 10/28/24 Andrew Christian MD [address] [place] [address] PCP - General Family Medicine 10/29/24 Arnulfo Monreal MD [address] [place] [address] Obstetrics & Gynecology 02/17/22 documented as of this encounter
--- OUTSIDE RECORDS SUMMARY | 2025-01-24 01:15 | XMS_ITS | Encounter Summary ---
Author Organization [facility] Address [address] [place] [address] Phone Care Team Providers Care Manager Discovery Name Role Phone Arnulfo Monreal MD Unavailable [phone] Ruiz Live MD Primary Care Provider [phone] Andrew Christian MD Primary Care Provider [phone] Reason for Visit * Reason Comments Medication Refill Encounter Details Date Type Department Care Team (Late Contact Info) Description 09/17/[address] [facility] - Family Medicine [facility] [address] [place] [phone] Ruiz Live MD [address] [place] [address] Medication Refill Social History Tobacco Use Types [...] Master's degree (e.g., MA, MS, Can, MEd, CONTACT LENS BLOCKER, CHAVEZ) 02/17/2022 Sexually Active Control Partners Comments [...] Telephone Encounter - Reshma Harley RN - 09/18/2023 10:20 AM BLOCKING MACHINE OPERATOR SECOND Medication failed the protocol, provider to review and approve the medication order if appropriate. Requested Prescriptions Pending Prescriptions Disp Refills baclofen (LIORESAL) 10 MG Tablet [Pharmacy Med Name: BACLOFEN 10 MG TABLET] 90 Tablet 0 Sig: TAKE 1 TABLET BY MOUTH THREE TIMES A DAY Not Delegated - Muscle Relaxants Protocol Failed - 09/17/2023 4:22 PM Failed - This refill cannot be delegated Passed - Visit with relevant provider in past 12 months or upcoming 90 days Recent Visits Date Type Provider Dept 09/15/23 Office Visit Imtiaz Perez APRN, [facility] 07/13/23 Office Visit Ruiz Live MD [facility] 07/08/23 Telemedicine Ruiz Live MD [facility] 06/17/23 Office Visit Imtiaz Perez APRN, [facility] 04/13/23 Office Visit Imtiaz Perez APRN, [facility] 04/05/23 Office Visit Imtiaz Perez APRN, [facility] [place] 03/01/23 Office Visit Ruiz Live MD [facility] 02/15/23 Telemedicine Ruiz Live MD [facility] 01/26/23 Office Visit Imtiaz Perez APRN, [facility] 12/22/22 Telemedicine Imtiaz Perez APRN, [facility] Showing recent visits within past 365 days and meeting all other requirements Future Appointments Date Type Provider Dept 11/12/23 Appointment Ruiz Live MD [facility] Showing future appointments within next 90 days and meeting all other requirements KING MACHINE OPERATOR SECOND documented in this encounter Plan of Treatment Not on file documented as of this encounter Visit Diagnoses Diagnosis Chronic pain syndrome documented in this encounter Care Teams Manager Discovery Relationship Specialty Start Date End Date Ruiz Live MD [address] [place] [address] PCP - General Family Medicine 02/17/22 10/28/24 Andrew Christian MD [address] [address] PCP - General Family Medicine 10/29/24 Arnulfo Monreal MD [address] [place] [address] Obstetrics & Gynecology 02/17/22 documented as of this encounter
--- OUTSIDE RECORDS SUMMARY | 2025-01-24 01:15 | XMS_ITS | Encounter Summary ---
Author Organization [facility] Address [address] [place] [address] Phone Care Team Providers Care Certified Medical Coder Name Role Phone Arnulfo Monreal MD Unavailable [phone] Ruiz Live MD Primary Care Provider [phone] Andrew Christian MD Primary Care Provider Reason for Visit * Reason Comments Medication Refill Encounter Details Date Type Department Care Team (Late Contact Info) Description 08/26/2023 Refill [facility] - Family Medicine [facility] [address] [place] [phone] Ruiz Live MD [address] [place] [address] Medication Refill Social History Tobacco Use Types [...] Master's degree (e.g., MA, MS, Can, MEd, CLAMPER, CHAVEZ) 02/17/2022 Sexually Active Control Partners Comments [...] suspected to have Coronavirus/COVID-19? No / Unsure 08/11/2023 7:20 PM CDT documented as of this encounter Miscellaneous Notes * Telephone Encounter - Kathy Villa RN - 08/27/2023 8:34 AM CDT Name from pharmacy: BACLOFEN 10 MG TABLET Will file in chart as: baclofen (LIORESAL) 10 MG Tablet The original prescription was reordered on 08/26/2023 by Ruiz Live MD. documented in this encounter Plan of Treatment Not on file documented as of this encounter Visit Diagnoses Diagnosis Chronic pain syndrome documented in this encounter Care Teams Certified Medical Coder Relationship Specialty Start Date End Date Ruiz Live MD [address] [address] PCP - General Family Medicine 02/17/22 10/28/24 Andrew Christian MD [address] [address] PCP - General Family Medicine 10/29/24 Arnulfo Monreal MD [address] [address] Obstetrics & Gynecology 02/17/22 documented as of this encounter
--- OUTSIDE RECORDS SUMMARY | 2025-01-24 01:15 | XMS_ITS | Encounter Summary ---
Author Organization [facility] Address [address] [place] [address] Phone Care Team Providers Care Active Directory Specialist Name Role Phone Arnulfo Monreal MD Unavailable [phone] Ruiz Live MD Primary Care Provider [phone] Andrew Christian MD Primary Care Provider [phone] Reason for Visit * Reason Comments Medication Refill Encounter Details Date Type Department Care Team (Late Contact Info) Description 06/26/2023 Refill [facility] - Family Medicine [facility] [address] [place] [phone] Ruiz Live MD [address] [place] [address] Medication Refill Social History Tobacco Use Types [...] Master's degree (e.g., MA, MS, Can, MEd, COURT REPORTER, CHAVEZ) 02/17/2022 Sexually Active Control Partners Comments [...] suspected to have Coronavirus/COVID-19? No / Unsure 06/22/2023 6:43 AM CDT documented as of this encounter Miscellaneous Notes * Telephone Encounter - Reshma Harley RN - 06/26/2023 11:37 AM CDT Medication failed the protocol, provider to review and approve the medication order if appropriate. Requested Prescriptions Pending Prescriptions Disp Refills baclofen (LIORESAL) 10 MG Tablet [Pharmacy Med Name: BACLOFEN 10 MG TABLET] 90 Tablet 0 Sig: TAKE 1 TABLET BY MOUTH THREE TIMES A DAY Not Delegated - Muscle Relaxants Protocol Failed - 06/26/2023 11:34 AM Failed - This refill cannot be delegated Passed - Visit with relevant provider in past 12 months or upcoming 90 days Recent Visits Date Type Provider Dept 06/17/23 Office Visit Imtiaz Perez APRN, [facility] 04/13/23 Office Visit Imtiaz Perez APRN, [facility] [place] 04/05/23 Office Visit Imtiaz Perez APRN, [facility] 03/01/23 Office Visit Ruiz Live MD [facility] 02/15/23 Telemedicine Ruiz Live MD [facility] 01/26/23 Office Visit Imtiaz Perez APRN, [facility] 12/22/22 Telemedicine Imtiaz Perez APRN, [facility] 12/10/22 Office Visit Ruiz Live MD [facility] 11/30/22 Office Visit Ruiz Live MD [facility] 11/09/22 Office Visit LiveRuiz champion MD [facility] Showing recent visits within past 365 days and meeting all other requirements Future Appointments Date Type Provider Dept 07/02/23 Appointment Ruiz Live MD [facility] Showing future appointments within next 90 days and meeting all other requirements documented in this encounter Plan of Treatment Not on file documented as of this encounter Visit Diagnoses Diagnosis Chronic pain syndrome documented in this encounter Care Teams Active Directory Specialist Relationship Specialty Start Date End Date Ruiz Live MD [address] [place] [address] PCP - General Family Medicine 02/17/22 10/28/24 Andrew Christian MD [address] [place] [address] PCP - General Family Medicine 10/29/24 Arnulfo Monreal MD [address] [place], [place] [id number] Obstetrics & Gynecology 02/17/22 documented as of this encounter
--- OUTSIDE RECORDS SUMMARY | 2025-01-24 01:15 | XMS_ITS | Data Portability ---
Author Organization [facility] ZAYDAQasim Address [address] [place] [address] Assessment No assessment recorded. Plan of Treatment Reminders Order Date Submit Date Provider Last Modified By Organization Details Last Modified Time Details Appointments None recorde d. Lab urinaly sis dipstic k [facility] Order, Internal Use Only DO Not Attach Compendium DO Not Attach Compendium, Do Not Delete/merge, [id number] 9 09:42:03 CT + NG + TV, DNA, urine/s wab 2017 018 [facility], [address], [address], [place], [address], 8 07:07:04 bacteri al vaginos is + vaginit is panel, vaginal 2017 018 ALFR[facility] ST[facility], [address], [address], [place], [address], 8 16:17:40 Referral None recorde d. Procedures None recorde d. Surgeries None recorde d. Imaging US, pelvis, transab dominal + transva ginal 2018 019 GEOVANNI Kaminski Scheduling, [address] [place], [address], 9 09:20:58 Medication Orders azithro mycin 500 mg tablet 2017 018 [email or web address] Not available 9 16:09:16 flucona zole 150 mg tablet 2017 018 mt[facility] Not available 9 16:09:46 metroni dazole 500 mg tablet 2017 018 mtitusma Not available 9 16:10:08 Patient TargetsNo targets recorded. Patient Instructions Encounter Date Encounter Id Patient Instructions Last Modified By Organization Details Last Modified Time 04/20/2018 [id number] Records requested. Patient needs to follow up annually for well women exams. [email or web address] Not available 04/20/2018 15:13:20 Reason for Referral None Reported. Results Created Date Observation Date Name Description Value Unit Range Abnormal Flag Note LastModifiedBy Organization Detail LastModifiedTime 04/20/20 18 04/23/2018 bacte rial vagin osis + vagin itis panel , vagin al chlamydia trachomatis, THERESA Positi ve negati ve abnormal Not Available [facility] ([facility]) [address] [place], [address], 05/02/2018 16:17:40 04/20/20 18 04/23/2018 bacte rial vagin osis + vagin itis panel , vagin al neisseria gonorrhoeae, THERESA Negati ve negati ve Not Available [facility] ([facility]) [address] [place], [address], 05/02/2018 16:17:40 04/20/20 18 04/24/2018 bacte rial vagin osis + vagin itis panel , vagin al trich vag by THERESA Negati ve negati ve Not Available [facility] ([facility]) [address] [place], [address], 05/02/2018 16:17:40 04/20/20 18 04/28/2018 bacte rial vagin osis + vagin itis panel , vagin al atopobium vaginae High - 2 score abnormal Not Available [facility] ([facility]) [address] [place], [address], 05/02/2018 16:17:40 04/20/20 18 04/28/2018 bacte rial vagin osis + vagin itis panel , vagin al bvab 2 High - 2 score abnormal Not Available [facility] ([facility]) [address] [place], [address], 05/02/2018 16:17:40 04/20/20 18 04/28/2018 bacte rial vagin osis + vagin itis panel , vagin al megasphaera 1 High - 2 score abnormal Calcu late total score by mary kate lambert the 3 indiv idual bacte rial vagin osis (BV) marke r score s toget her. Total score is inter prete d as follo ws: Total score 0-1: Indic ates the absen ce of BV. Total score 2: Indet ermin ate for BV. Addit ional clini jodie data shoul d be evalu ated to estab brenda a diagn osis. Total score 3-6: Indic ates the prese nce of BV. This test was devel oped and its perfo rmanc e nixon cteri stics deter mined by [employer]. It has not been clear ed or appro artemio by the Food and Drug Admin istra tion. The FDA has deter mined that such clear ance or appro shraddha is not neces dasha. Not Available [facility] ([facility]) [address], [place], [address], 05/02/2018 16:17:40 04/20/20 18 05/02/2018 bacte rial vagin osis + vagin itis panel , vagin al paulette albicans, THERESA Positi ve negati ve abnormal Not Available [facility] ([facility]) [address] [place], [address], 05/02/2018 16:17:40 04/20/20 18 05/02/2018 bacte rial vagin osis + vagin itis panel , vagin al paulette glabrata, THERESA Negati ve negati ve This test was devel oped and its perfo rmanc e nixon cteri stics deter mined by [facility]. It has not been clear ed or appro artemio by the Food and Drug Admin istra tion. The FDA has deter mined that such clear ance or appro shraddha is not guilherme lou. Not Available [facility] ([facility]) [address], [place], [address], 05/02/2018 16:17:40 06/02/20 18 06/06/2018 CT + NG + TV, DNA, urine /swab chlamydia by THERESA Negati ve negati ve Not Available [facility] ([facility]) [address], [place], [address], 06/06/2018 07:07:04 06/02/20 18 06/06/2018 CT + NG + TV, DNA, urine /swab gonococcus by THERESA Negati ve negati ve Not Available [facility] ([facility]) [address], [place], [address], 06/06/2018 07:07:04 06/02/20 18 06/06/2018 CT + NG + TV, DNA, urine /swab trich vag by THERESA Negati ve negati ve Not Available [facility] ([facility]) [address], [place], [address], 06/06/2018 07:07:04 06/19/20 19 06/19/2019 urina lysis , dipst ick Leukocytes Negati ve Not Available In-Office Order Internal Use Only DO Not Attach Compendium DO Not Attach Compendium, Do Not Delete/merge, [id number] 06/19/2019 17:16:19 06/19/2006/19/2019 urina lysis , dipst ick Nitrite negati ve Not Available In-Office Order Internal Use Only DO Not Attach Compendium DO Not Attach Compendium, Do Not Delete/merge, [id number] 06/19/2019 17:16:19 06/19/20 19 06/19/2019 urina lysis , dipst ick Urobilinogen .2 Not Available In-Of fice Order Internal Use Only DO Not Attach Compendium DO Not Attach Compendium, Do Not Delete/merge, [id number] 06/19/2019 17:16:19 06/19/2006/19/2019 urina lysis , dipst ick Protein Negati ve Not Available In-Office Order Internal Use Only DO Not Attach Compendium DO Not Attach Compendium, Do Not Delete/merge, [id number] 06/19/2019 17:16:19 06/19/20 19 06/19/2019 urina lysis , dipst ick pH 7.0 Not Available In-Office Order Internal Use Only DO Not Attach Compendium DO Not Attach Compendium, Do Not Delete/merge, [id number] 06/19/2019 17:16:19 06/19/2006/19/2019 urina lysis , dipst ick Blood Negati ve Not Available In-Office Order Internal Use Only DO Not Attach Compendium DO Not Attach Compendium, Do Not Delete/merge, [id number] 06/19/2019 17:16:19 06/19/2006/19/2019 urina lysis , dipst ick Specific [place] 1.015 Not Available In-Off ice Order Internal Use Only DO Not Attach Compendium DO Not Attach Compendium, Do Not Delete/merge, [id number] 06/19/2019 17:16:19 06/19/2006/19/2019 urina lysis , dipst ick Ketone Negati ve Not Available In-Office Order Internal Use Only DO Not Attach Compendium DO Not Attach Compendium, Do Not Delete/merge, [id number] 06/19/2019 17:16:19 06/19/2006/19/2019 urina lysis , dipst ick Bilirubin Negati ve Not Available In-Office Order Internal Use Only DO Not Attach Compendium DO Not Attach Compendium, Do Not Delete/merge, [id number] 06/19/2019 17:16:19 06/19/2006/19/2019 urina lysis , dipst ick Glucose Negati ve Not Available In-Office Order Internal Use Only DO Not Attach Compendium DO Not Attach Compendium, Do Not Delete/merge, [id number] 06/19/2019 17:16:19 06/22/2006/22/2019 US, pelvi s, trans abdom inal + trans vagin al No observ ation record ed. corina Thompson [facility] [address] [place], [address], 06/23/2019 11:37:36 Result Notes None recorded. 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 Procedures Surgical History Date Name Laterality Status Provider Name and Address Organization Details Recorded Time 07/08/20 17 Date of Last Pap Smear completed MANDO Barton Attn: Accounting,[address] [facility], [place], [address], [facility] 04/25/2018 10:18:38 10/25/19 15 Partial hysterectomy completed MANDO Barton Attn: Accounting,[address] [facility], [place], [address], [facility] 04/20/2018 14:42:02 Imaging Results Imaging Date Name Status LastModified by Organization Details LastModified Time 06/22/2019 US, pelvis, transabdominal + transvaginal completed corina Thompson [facility] [address] [facility] [place], [address], 06/23/2019 11:37:36 Procedure Notes None recorded. Medical Equipment None Reported. Allergies No known drug allergies Medications Name Sig Start Date Stop Date Status Note LastModified by Organization Details LastModified Time fluoxetine 40 mg capsule Take 1 capsule every day by oral route. active Not Available Not Available No t Available cyclobenzapr ine 10 mg tablet active Not Available Not Available Not Available amoxicillin 500 mg capsule 12/22 completed Not Available Not Available Not Available prednisone 10 mg tablet 12/22 completed Not Available Not Available Not Available clindamycin HCl 300 mg capsule 12/22 completed Not Available Not Available Not Available ibuprofen 800 mg tablet 12/22 completed Not Available Not Available Not Available fluconazole 150 mg tablet Take 1 tablet every day by oral route. 12/22 completed Not Available Not Available Not Available benzonatate 200 mg capsule 12/22 completed Not Available Not Available Not Available hydrocodone 5 mg-acetamino phen 325 mg tablet 12/22 completed Not Available Not Available Not Available metronidazol e 500 mg tablet Take 1 tablet twice a day by oral route for 7 days. 12/22 completed Not Available Not Available Not Available lidocaine HCl 2 % mucosal jelly 12/22 completed Not Available Not Available Not Available acetaminophe n 300 mg-codeine 30 mg tablet 12/22 completed Not Available Not Available Not Available valacyclovir 500 mg tablet Take 1 tablet twice a day by oral route for 3 days. 2019 active Not Available Not Available Not Avai lable tramadol 50 mg tablet 12/22 completed Not Available Not Available Not Available ketorolac 10 mg tablet active Not Available Not Available No t Available amoxicillin 875 mg tablet 12/22 completed Not Available Not Available Not Available prednisolone acetate 1 % eye drops,suspen sabra 12/22 completed Not Available Not Available Not Available cephalexin 500 mg capsule 12/22 completed Not Available Not Available Not Available erythromycin 5 mg/gram (0.5 %) eye ointment 12/22 completed Not Available Not Available Not Available buspirone 7.5 mg tablet 12/22 completed Not Available Not Available Not Available omeprazole 20 mg capsule,niki yed release active Not Available Not Available Not Available methylpredni solone 4 mg tablets in a dose pack active Not Available Not Available No t Available fluoxetine 20 mg capsule 12/22 completed Not Available Not Available Not Available azithromycin 500 mg tablet Take 2 tablets every day by oral route for 1 day. 12/22 completed Not Available Not Available Not Available cyclobenzapr ine 5 mg tablet 12/22 completed Not Available Not Available Not Available diclofenac 1 % topical gel 12/22 completed Not Available Not Available Not Available Vitals Date Recorded Body height Body mass index (BMI) Body weight Systolic blood pressure Diastolic blood pressure Provider Name and Address Organization Details Last Updated DateTime 04/20/2018 170.18 cm 30.7 kg/m2 27687.1 g 122 mm[Hg] 84 mm[Hg] YOLANDA Siegel [place] [facility] 8 14:28:17 Date Recorded Body height Body mass index (BMI) Body weight Systolic blood pressure Diastolic blood pressure Provider Name and Address Organization Details Last Updated DateTime 05/05/2018 170.18 cm 30.4 kg/m2 95483.92 g 130 mm[Hg] 90 mm[Hg] Sunni Riosmons [facility] 8 14:54:07 Date Recorded Body height Body mass index (BMI) Body weight Systolic blood pressure Diastolic blood pressure Provider Name and Address Organization Details Last Updated DateTime 06/02/2018 170.18 cm 29.4 kg/m2 16610.37 g 116 mm[Hg] 80 mm[Hg] Sunni Feliz [facility] 8 14:05:27 Date Recorded Body height Systolic blood pressure Diastolic blood pressure Provider Name and Address Organization Details Last Updated DateTime 12/22/2018 170.18 cm 120 mm[Hg] 74 mm[Hg] Stacey Small MA [facility] 12/22/2018 16:12:39 Date Recorded Body mass index (BMI) Body weight Provider Name and Address Organization Details Last Updated DateTime 12/22/2018 29.4 kg/m2 10044.37 g MANDO Barton Attn: Accounting,[address] [place], [address], [facility] 12/22/2018 17:33:19 Date Recorded Body height Body mass index (BMI) Body weight Systolic blood pressure Diastolic blood pressure Provider Name and Address Organization Details Last Updated DateTime 06/19/2019 170.18 cm 38.3 kg/m2 558492.9 4 g 124 mm[Hg] 78 mm[Hg] Lissa James MA [facility] 9 17:15:36 Social History Question Answer Notes LastModified by Organizat ion Details LastModified Time Tobacco Smoking Status Former Smoker YOLANDA Siegel, [facility] 04/20/2018 14:32:32 What Was The Date Of Your Most Recent Tobacco Screening? 12/22/2018 Information not available 05/18/2019 How Much Tobacco Do You Smoke? 1 PPD Information not available 04/20/2018 How Many Years Have You Smoked Tobacco? 16 Has Not Smoked In 9 Years Information not available 04/20/2018 Sex: Female Functional Status None recorded. Mental Status None recorded. Family History Relationship Description Onset Age of this Age Resolved Age Notes LastModified by Organization Details LastModified Time Father Heart disease [email or web address] Not available 03/26 14:31:50 Paternal Grandfather Heart disease [email or web address] Not available 03/26 14:32:03 Notes:Sister Cervical CA 4 m onths ago Medical History Condition Response Acid Reflux (GERD) Y Gynecological History Statement/Question Response Abnormal Pap N Sexually Active? Y Menses Monthly N STIs/STDs Y Date of Last Pap Smear 07/08/2017 Sexual Problems? N Current Control Method None LMP Obstetrics History GPAL:G 0 P 0 0 0 0 Past Encounters Encounter ID Performer Location Encounter Start Date Encounter Closed Date Diagnosis/Indication Diagnosis SNOMED-CT Code Diagnosis ICD10 Code Diagnosis Note [id number] MANDO Barton [address] [place] [address] 04/20/2018 14:13:39 04/21/2018 15:40:35 Vaginal discharge 288103683 N89.8 Symptoms consistent with BV. Will treat patient with flagyl. Educated patient on vulvar hygiene and use condoms during sex. swab obtained and sent to lab. [id number] MANDO Barton [address] [place] [address] [place] [address] 05/05/2018 14:47:45 05/06/2018 16:22:44 Chlamydial infection 414265630 A74.9 Patient educated about STI and treatment. Take complete course of antibiotic , no intercours e until 7 days after course completed, use condoms at all times, good vulvar hygiene, notify partner of infection and the need to be treated. follow up in 4 week for KHOA or call office if issue occurs Candidiasis of vagina 72 936836 B37.3 Patient positive for yeast on nuswab. Fluconazol e ordered. [id number] MANDO Barton [address] OB [address] [place] [address] 06/02/2018 13:55:39 06/03/2018 10:01:12 History of chlamydial infection 374621323 Z86.19 KHOA performed today. [id number] MANDO Barton 14 OB [address] [facility] [address] [place] [address] 12/22/2018 15:19:37 12/22/2018 20:18:07 Gynecologic examination 27375956 Z01.419 -Educated on the importance of SBE and awareness. -Discussed the importance of cervical cancer screenings . Pt has no cervix and no history of abnormal paps. Pt had vaginal pap completed 07/08/17 and was normal. -Educated osteoporos is prevention including calcium rich foods, weight bearing exercise. -Discussed the importance of exercise. -Nutrition discussed and the importance of a diet rich in fruits, vegetable, whole grains, and lean proteins. -Counseled regarding prevention of STD's and screening options, condom use and prevention . -Advised avoidance of tobacco, alcohol, and drugs. -Discussed sun safety and the importance of sunscreen. [id number] JEMMA Magana- [address] OB [address] [facility] [address] [place] [address] 06/19/2019 16:51:50 06/20/2019 14:49:40 At increased risk of urinary tract infection 539910300 Z91.89 1. Will monitor as dip was negative. 2. Pt instructed to increase fluids, decrease soda, sugary beverages and caffeinate d beverages. 3. To call office if symptoms worsen or do not improve changes. Pain in pelvis 06250920 R10.2 Will order pelvic ultrasound . Pt advised on treatment options for ovarian cysts and fibroids including but not limited to control use. Pt educated on other causes of pelvic pain included but not limited to constipati on or bladder issues. Pt verbalized understand ing. Will follow up pending results. Health Concerns Section Related Observation LastModified by Organization Detai ls LastModified Time None Recorded Concern Status LastModified by Organization Details LastModified Time None Recorded Advance Directives Directive None Recorded Payers Encounter Date Sequence Insurance Name Policy Number Policy Fink Covered Member ID Fink Member ID Guarantor Name 04/20/2018 1 [place] [id number] Nereida Regan [id number] 29 Nereida Regan 05/05/2018 1 [place] [id number] Nereida Regan [id number] Nereida Regan 06/02/2018 1 [place] [id number] Nereida Regan [id number] 29 Nereida Regan 12/22/2018 1 [place] [id number] Nereida Regan [id number] Nereida Regan 06/19/2019 1 [place] [id number] Nereida Regan [id number] 29 Nereida Regan Notes Date Note Type Note Provider Name and Address Organization Details Recorded Time 04/20/2018 text/html Vaginal DischargeReported bypatient.Location:vag cira Quality:white; fishy smell; odor Severity:mild Duration:5 days Onset/Timing:daily Context:n/a Modifying Factors:nothing gives relief; nothing makes it worse Associated Symptoms:no vaginal itching; no vaginal burning; no swelling/redness; no fever/chills; no diarrhea; no abdominal pain; no pelvic pain; no vaginal pain; no pain during urination; no pain during intercourse; no vaginal lump; no genital lesion; no sexually transmitted disease; no fever Patient is here related to vagina discharge and odor. Patient states her symptoms are similar to when she had BV in the past. Patient is new to our office. patient transfering to our office from Dr. Rashid Quijano's office. Patient states she had a well women exam in June 2017 and had normal pap at that time. Patient reports she had a partial hysterectomy related to endometriosis in 2014. Records requested. MANDO Barton Attn: Accounting,[address] [place], [address], [facility] 04/20/2018 15:16:40 05/05/2018 text/html Patient here for test results. Patient had nuswab completed related to vaginal discharge on 04/20/18. Patient was positive for BV, yeast, and chlamydia. Patient has already been treated for BV. Patient denies any changes since last visit. Patient has no complaints at this time. MANDO Barton Attn: Accounting,[address] [place], [address], [facility] 05/05/2018 16:07:43 06/02/2018 text/html Patient had nusw ab completed related to vaginal discharge on 04/20/18. Patient was positive for BV, yeast, and chlamydia. Patient has already been treated for BV. Patient was treated for chlamydial on 05/05/18. Patient reports partner treated as well. Patient denies any changes since last visit. Patient has no complaints at this time. Patient denies any issues with vaginal discharge. 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 Post-MenopausalReporte d bypatient.Menopausal Symptoms:no menopausal symptoms; normal vaginal lubrication Vaginal Bleeding:history of menopause having occurred; no history of post menopausal bleeding Urinary Symptoms:no hematuria; no incontinence; no nocturia; no urinary frequency Vulva:no genital lesion; no vulvar atrophy Vagina:normal vaginal discharge; no vaginal atrophy Breast:no breast lump; no nipple discharge; no breast pain Sexual Complaints:no sexual complaints Psychological Symptoms:no depression; no anxiety Preventive Measures:encourage regular mammograms starting age 40; encourage self breast examination; encourage regular exercise; encourage no tobacco use Pt here for annual well women exam. Pt has no complaints today. MANDO Barton Attn: Accounting,[address] [place], [address], [facility] 12/22/2018 17:36:00 06/19/2019 text/html pt not sure if s he has a uti, denies burning or frequency but states pain in lower abdomen. states hysterectomy for endometriosis. describes pain as shooting pain down through vagina. denies vaginal discharge or odor. does state history of ovarian cysts. pt requests ultrasound and further work up for endometriosis. PAUL Magana Attn: Accounting,[address] [place], [address], [facility] 06/20/2019 10:15:54 OBGyn Episode No OBEpisode recorded.
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
--- OUTSIDE RECORDS SUMMARY | 2025-01-24 01:15 | XMS_ITS | Encounter Summary ---
Author Organization [facility] Healthcare Address [address] [place] [address] Care Team Providers Care Company Pilot Name Role Phone Andrew Christian MD Primary Care Provider [phone] Ruiz Live MD Primary Care Provider [phone] Malgorzata Oliver NP Primary Care Provider [phone] Encounter Details Date Type Department Care Team (Late st Contact Info) Description 09/30/2020 Telephone Infectious Diseases Cyril Ramos MD [address] [facility] [address] [place], [place] [id number] Social History Tobacco Use Types Packs/Day Years Used Date Smoking Tobacco: Every Day Cigarettes 0.3 9.2 Started: 2016 Smokeless Tobacco: Never Alcohol Use Standard Drinks/Week Comments Yes 4 (1 standard drink = 0.6 oz pur e alcohol) Comments No Sex and Gender Information Value Date Recorded Sex Assigned at Not on file Legal Sex Female 1:20 AM COMPLAINT SPECIALIST Gender Identity Female 08/31/2020 6:45 AM COMPLAINT SPECIALIST Sexual Orientation Bisexual 08/31/2020 6: 45 AM COMPLAINT SPECIALIST documented as of this encounter Plan of Treatment Not on file documented as of this encounter Visit Diagnoses Not on filedocumented in this encounter Additional Health Concerns Infection Onset Date Last Indicated Resolved Time MRSA Comment:Added from external infection. 04/16/2017 06/11/2021 5:00 AM C DT C. difficile Comment:Original Cdiff infection 02/2020, was treated at that time, not having active diarrhea. 09/28/2020 09/28/2020 04/06/2022 2 :23 PM CDT documented as of this encounter Care Teams Company Pilot Relationship Specialty Start Date End Date Andrew Christian MD PCP - General 11/26/14 11/29/22 Ruiz Live MD [address] [address] PCP - General Family Medicine 11/30/22 04/12/24 Malgorzata Oliver NP [address] [place] [address] PCP - General Nurse Practitioner 04/13/24 documented as of this encounter
--- OUTSIDE RECORDS SUMMARY | 2025-01-24 01:15 | XMS_ITS | Encounter Summary ---
Author Organization [facility] Healthcare Address [address] [place] [address] Care Team Providers Care Vamp Wetter Name Role Phone Andrew Christian MD Primary Care Provider [phone] Ruiz Live MD Primary Care Provider [phone] Malgorzata Oliver NP Primary Care Provider [phone] Encounter Details Date Type Department Care Team (Late st Contact Info) Description 09/28/2019 Telephone [facility] [address] [facility] 1[address] [place] [address] Evon Lubin RN Social History Tobacco Use Types Packs/Day Years Used Date Smoking Tobacco: Every Day Cigarettes 0.3 9.2 Started: 2016 Smokeless Tobacco: Never Alcohol Use Standard Drinks/Week Comments Yes 4 (1 standard drink = 0.6 oz pur e alcohol) Comments No Sex and Gender Information Value Date Recorded Sex Assigned at Not on file Legal Sex Female 1:20 AM AIRFLIGHT ATTENDANTS SUPERVISOR Gender Identity Female 08/31/2020 6:45 AM AIRFLIGHT ATTENDANTS SUPERVISOR Sexual Orientation Bisexual 08/31/2020 6: 45 AM AIRFLIGHT ATTENDANTS SUPERVISOR documented as of this encounter Plan of [...] documented as of this encounter Care Teams Vamp Wetter Relationship Specialty Start Date End Date Andrew Christian MD PCP - General 11/26/14 11/29/22 Ruiz Live MD [address] [facility] [address] [address] PCP - General Family Medicine 11/30/22 04/12/24 Malgorzata Oliver NP [address] [address] PCP - General Nurse Practitioner 04/13/24 documented as of this encounter
--- OUTSIDE RECORDS SUMMARY | 2025-01-24 01:15 | XMS_ITS | Encounter Summary ---
Author Organization [facility] Address [address] [place] [address] Phone Care Team Providers Care Medical Voucher Clerk Name Role Phone Arnulfo Monreal MD Unavailable Ruiz Live MD Primary Care Provider [phone] Andrew Christian MD Primary Care Provider [phone] Reason for Visit * Reason Comments Medication Refill Encounter Details Date Type Department Care Team (Late Contact Info) Description 10/23/2023 Refill [facility] - Family Medicine [facility] [address] [place] [id number] Ruiz Live MD [address] [place] [address] Medication Refill Social History Tobacco Use Types [...] Master's degree (e.g., MA, MS, Can, MEd, CUSTODIAN SUPERVISOR, CHAVEZ) 02/17/2022 Sexually Active Control Partners Comments [...] Telephone Encounter - Reshma Harley RN - 10/24/2023 11:48 AM PROPERTY CONTROLLER Medication failed the protocol, provider to review and approve the medication order if appropriate. Requested Prescriptions Pending Prescriptions Disp Refills baclofen (LIORESAL) 10 MG Tablet [Pharmacy Med Name: BACLOFEN 10 MG TABLET] 90 Tablet 0 Sig: TAKE 1 TABLET BY MOUTH THREE TIMES A DAY Not Delegated - Muscle Relaxants Protocol Failed - 10/23/2023 9:05 AM Failed - This refill cannot be [...] 90 days and meeting all other requirements ERTY CONTROLLER documented in this encounter Plan of Treatment Not on file documented as of this encounter Visit Diagnoses Diagnosis Chronic pain syndrome documented in this encounter Care Teams Medical Voucher Clerk Relationship Specialty Start Date End Date Ruiz Live MD [address] [place] [address] PCP - General Family Medicine 02/17/22 10/28/24 Andrew Christian MD [address] [place] [address] PCP - General Family Medicine 10/29/24 Arnulfo Monreal MD [address] [place] [address] Obstetrics & Gynecology 02/17/22 documented as of this encounter
--- OUTSIDE RECORDS SUMMARY | 2025-01-24 01:15 | XMS_ITS | Encounter Summary ---
Author Organization [facility] Address [address] [place] [address] Phone Care Team Providers Care Leather Cleaner Name Role Phone Arnulfo Monreal MD Unavailable [phone] Ruiz Live MD Primary Care Provider [phone] Andrew Christian MD Primary Care Provider [phone] Reason for Visit * Reason Comments Medication Refill Encounter Details Date Type Department Care Team (Late st Contact Info) Description 11/23/2023 Refill [facility] - Family Medicine [facility] [address] [place] [address] Luke Harris MD [address] [address] Medication Refill Social History Tobacco Use Types Packs/Day Years Used Date Smoking Tobacco: Every Day Cigarettes 0.5 6 Smokeless Tobacco: Never Comments:pt states quit abou t a month ago Alcohol Use Standard Drinks/Week Comments Not Currently 3 (1 standard drink = 0.6 oz pur e alcohol) Occasionally C Utilities Answer Date Recorded In the past 12 months has [employer], gas, oil, or water company threatened [...] often do you attend chur ch or rastafari services? Never 11/12/2023 Do you belong to any clubs o r organizations such as orthodoxy groups, unions, fraternal or athletic groups, or [...] medical care, and heating? Very hard 11/12/2023 [facility] - Occupational Stress [...] place to sleep or slept in a senior care (including now)? No 11/12/2023 Education Answer Date Recorded What is the highest level of school you have completed or the highest degree you have received? Master's degree (e.g., MA, MS, Can, MEd, BLENDER OPERATOR, [employer]AVEZ) 02/17/2022 Sexually Active Control Partners [...] Telephone Encounter - Kathy Villa RN - 11/23/2023 5:24 PM CST Name from pharmacy: BACLOFEN 10 MG TABLET Will file in chart as: baclofen (LIORESAL) 10 MG Tablet The original prescription was reordered on 11/23/2023 by Ruiz Live MD TOR AND STORAGE BIN TENDER * Telephone Encounter - Kathy Villa RN - 11/23/2023 11:56 AM CST duplicate TOR AND STORAGE BIN TENDER documented in this encounter Plan of Treatment Not on file documented as of this encounter Visit Diagnoses Diagnosis Chronic pain syndrome documented in this encounter Care Teams Leather Cleaner Relationship Specialty Start Date End Date Ruiz Live MD [address] [place] [address] PCP - General Family Medicine 02/17/22 10/28/24 Andrew Christian MD [address] [address] PCP - General Family Medicine 10/29/24 Arnulfo Monreal MD [address] [place] [address] Obstetrics & Gynecology 02/17/22 documented as of this encounter
--- OUTSIDE RECORDS SUMMARY | 2025-01-24 01:15 | XMS_ITS | Encounter Summary ---
Author Organization [facility] Address [address] [place] [address] Phone Care Team Providers Care Environmental Engineering Intern Name Role Phone Arnulfo Monreal MD Unavailable [phone] Ruiz Live MD Primary Care Provider [phone] Andrew Christian MD Primary Care Provider [phone] Reason for Visit * Reason Comments Medication Refill Encounter Details Date Type Department Care Team (Late Contact Info) Description 03/21/2022 Refill [facility] - Family Medicine [facility] [address] [place] [id number] Ruiz Live MD [address] [place] [address] Medication Refill Social History Tobacco Use Types [...] Master's degree (e.g., MA, MS, Can, MEd, HOSPITAL UNIT COORDINATOR, CHAVEZ) 02/17/2022 Sexually Active Control Partners Comments [...] encounter Miscellaneous Notes * Telephone Encounter - Bria Masterson RN - 03/24/2022 8:13 AM CDT Medication failed the protocol, provider to review and approve the medication order if appropriate. Requested Prescriptions Pending Prescriptions Disp Refills varenicline (CHANTIX) 0.5 MG Tablet [Pharmacy Med Name: VARENICLINE 0.5 MG TABLET] 74 Tablet 0 Sig: TAKE ONE TAB BY MOUTH EVERY DAY X 3 DAYS AND THEN GO TO 0.5 MG TWICE A DAY X 4 DAYS AND THEN 1MG TWICE A DAY STOP SMOKING AFTER 1 WEEK OF MEDICATION Not Delegated - Smoking Deterrents Protocol Failed - 03/21/2022 9:01 AM Failed - This refill cannot be [...] of this encounter Visit Diagnoses Diagnosis Tobacco dependence syndrome Tobacco use disorder documented in this encounter Additional Health Concerns Infection Onset Date Last Indicated Resolved Time Respiratory Rule Out - RPA 12/06/2022 12/06/2022 0 12/06/2022 3:46 PM ENERGY PROFESSIONAL documented as of this encounter Care Teams Environmental Engineering Intern Relationship Specialty Start Date End Date Ruiz Live MD [address] [place] [address] PCP - General Family Medicine 02/17/22 10/28/24 Andrew Christian MD [address] [place], [place] [id number] PCP - General Family Medicine 10/29/24 Arnulfo Monreal MD [address] [place], [place] [id number] Obstetrics & Gynecology 02/17/22 documented as of this encounter
--- OUTSIDE RECORDS SUMMARY | 2025-01-24 01:15 | XMS_ITS | Encounter Summary ---
Author Organization [facility] Address [address] [place] [address] Phone Care Team Providers Care Forensic Technician Name Role Phone Arnulfo Monreal MD Unavailable [phone] Ruiz Live MD Primary Care Provider [phone] Andrew Christian MD Primary Care Provider [phone] Reason for Visit * Reason Comments Medication Refill Encounter Details Date Type Department Care Team (Late st Contact Info) Description 03/09/2024 Refill [facility] - Family Medicine [facility] [address] [place] [address] Imtiaz Perez APRN, DIRECTOR OF INSTITUTIONAL RESEARCH [address] [address] Medication Refill Social History Tobacco Use Types Packs/Day Years Used Date Smoking Tobacco: Every Day Cigarettes 0.5 6 Smokeless Tobacco: Never Comments:pt states quit abou t a month ago Alcohol Use Standard Drinks/Week Comments Not Currently 3 (1 standard drink = 0.6 oz pur e alcohol) Occasionally [facility] Utilities Answer Date Recorded In the past [...] often do you attend chur ch or rastafarian services? Never 11/12/2023 Do you belong to any clubs o r organizations such as christian groups, unions, fraternal or athletic groups, or [...] medical care, and heating? Very hard 11/12/2023 [facility] Occup[facility] ional Health - Occupational Stress [...] Master's degree (e.g., MA, MS, Can, MEd, SHOWROOM EXECUTIVE DIRECTOR, CHAVEZ) 02/17/2022 Sexually Active Control Partners Comments [...] Telephone Encounter - Reshma Harley RN - 03/09/2024 3:19 PM CDT PDMP 02-07-24, 30 days Medication failed the protocol, provider to review and approve the medication order if appropriate. Requested Prescriptions Pending Prescriptions Disp Refills pregabalin (LYRICA) 150 MG Capsule [Pharmacy Med Name: PREGABALIN 150 MG CAPSULE] 90 Capsule Sig: TAKE 1 CAPSULE BY MOUTH 3 TIMES A DAY Not Delegated - Anticonvulsants Excluding Benzodiazepines Protocol Failed - 03/09/2024 9:38 AM Failed - This refill cannot be delegated Passed - Visit with relevant provider in past 12 months or upcoming 90 days Recent Visits Date Type Provider Dept 02/22/24 Office Visit Imtiaz Perez, COPIER AND PRINTER FIELD TECHNICIAN, DIRECTOR OF INSTITUTIONAL RESEARCH [facility] 11/23/23 Office Visit Fang DownsRAPHAEL, DIRECTOR OF INSTITUTIONAL RESEARCH [facility] 11/17/23 Office Visit Imtiaz Perez APRN, DIRECTOR OF INSTITUTIONAL RESEARCH [facility] 09/15/23 Office Visit Imtiaz Perez APRN, DIRECTOR OF INSTITUTIONAL RESEARCH [facility] 07/13/23 Office Visit Ruiz Live MD [facility] 07/08/23 Telemedicine Ruiz Live MD [facility] 06/17/23 Office Visit Imtiaz Perez APRN, DIRECTOR OF INSTITUTIONAL RESEARCH [facility] 04/13/23 Office Visit Imtiaz Perez APRN, DIRECTOR OF INSTITUTIONAL RESEARCH [facility] 04/05/23 Office Visit Imtiaz Perez APRN, DIRECTOR OF INSTITUTIONAL RESEARCH [facility] Showing recent visits within past 365 days and meeting all other requirements Future Appointments Date Type Provider Dept 03/17/24 Appointment Mya Mccoy, [facility] Showing future appointments within next 90 days and meeting all other requirements documented in this encounter Plan of Treatment Not on file documented as of this encounter Visit Diagnoses Diagnosis Fibromyalgia Mylagia and myositis, unspecified documented in this encounter Care Teams Forensic Technician Relationship Specialty Start Date End Date Ruiz Live MD [address] [place] [address] PCP - General Family Medicine 02/17/22 10/28/24 Andrew Christian MD [address] [address] PCP - General Family Medicine 10/29/24 Arnulfo Monreal MD [address] [place] [address] Obstetrics & Gynecology 02/17/22 documented as of this encounter
--- OUTSIDE RECORDS SUMMARY | 2025-01-24 01:15 | XMS_ITS | Clinical Summary ---
Author Organization [facility] Address [facility] [place] [address] Care Team Providers Care Cafeteria Director Name Role Phone Andrew Christian MD Primary Care Provider Allergies No known active allergies Social History Tobacco Use Types Packs/Day Years Used Date Smoking Tobacco: Every Day Cigarettes Smokeless Tobacco: Never Alcohol Use Standard Drinks/Week Comments Not Currently 0 (1 standard drink = 0.6 oz pur e alcohol) Comments No Sex and Gender Information Value Date Recorded Sex Assigned at Not on file Legal Sex Female 7:31 PM CDT Gender Identity Not on file Sexual Orientation Not on file Last Filed Vital Signs Vital Sign Reading Time Taken Comments Blood Pressure 147/94 05/19/2022 9:48 PM CDT Pulse 89 05/19/2022 9:48 PM CDT Temperature 36.6 C (97.9 F) 05/19/2022 9:48 PM CDT Respiratory Rate 20 05/19/2022 9:48 PM CDT Oxygen Saturation 97% 05/19/2022 9:48 PM CDT Inhaled Oxygen Concentration - - Weight 119.1 kg (262 lb 9.1 oz) 05/19/2022 9:48 PM CDT Height 177.8 cm (5' 10 ) 05/19/2022 9:48 PM CDT Body Mass Index 37.67 05/19/2022 9:48 PM CDT Plan of Treatment Health Maintenance Due Date Last Done Comments Annual Physical 1984 Pneumococcal Vaccine: Pediatrics (0 to 5 Years) and At-Risk Patients (6 to 64 Years) (1 of 2 - PCV) 1987 Hepatitis C 1999 Hepatitis B Vaccines (2 of 3 - 19+ 3-dose series) 11/22/2014 10/25/2014 Mammogram Screening 2021 COVID-19 Vaccine ( season) 2024 07/11/2021, 06/13/2021 Influenza Adult (#1) 2024 DTaP, Tdap and Td Vaccines (6 - Td or Tdap) 03/22/2027 03/22/2017, 11/11/1983, 01/03/1982, Additional history exists HPV Vaccines Aged Out No longer eligi ble based on patient's age to complete this topic Meningococcal B Vaccine Aged Out No l onger eligible based on patient's age to complete this topic Meningococcal Vaccine Aged Out No nicanor lianet eligible based on patient's age to complete this topic RSV Immunizations Under 20 Months Aged Out No longer eligible based on patient's age to complete this topic Insurance [employer] Care Teams Cafeteria Director Relationship Specialty Start Date End Date Andrew Christian MD [address] [address] PCP - General 03/27/13
--- OUTSIDE RECORDS SUMMARY | 2025-01-24 01:15 | XMS_ITS | Encounter Summary ---
Author Organization [facility] Address [address] [place] [address] Phone Care Team Providers Care Aircraft Engine Dismantler Name Role Phone Arnulfo Monreal MD Unavailable Ruiz Live MD Primary Care Provider [phone] Andrew Christian MD Primary Care Provider [phone] Reason for Visit * Reason Comments Medication Refill Encounter Details Date Type Department Care Team (Late st Contact Info) Description 03/14/2024 Refill [facility] - Family Medicine [facility] [address] [place] [address] Ruiz Live MD [address] [place] [address] Medication Refill Social History Tobacco Use Types [...] often do you attend chur ch or nondenominational services? Never 11/12/2023 Do you belong to any clubs o r organizations such as zoroastrianism groups, unions, fraternal or athletic groups, or [...] medical care, and heating? Very hard 11/12/2023 [facility] - Occupational Stress [...] place to sleep or slept in a intermediate (including now)? No 11/12/2023 Education Answer Date Recorded What is the highest level of school you have completed or the highest degree you have received? Master's degree (e.g., MA, MS, Can, MEd, SPECIAL CLIENT BUS DRIVER, CHAVEZ) 02/17/2022 Sexually Active Control Partners Comments [...] Telephone Encounter - Kathy Villa RN - 03/14/2024 9:59 AM CDT PDMP 01/21/24, 02/18/24 Medication failed the protocol, provider to review and approve the medication order if appropriate. Requested Prescriptions Pending Prescriptions Disp Refills baclofen (LIORESAL) 10 MG Tablet [Pharmacy Med Name: BACLOFEN 10 MG TABLET] 90 Tablet 0 Sig: Take 1 Tablet by mouth 3 times daily. Not Delegated - Muscle Relaxants Protocol Failed - 03/14/2024 9:18 AM Failed - This refill cannot be delegated Passed - Visit with relevant provider in past 12 months or upcoming 90 days Recent Visits Date Type Provider Dept 02/22/24 Office Visit Imtiaz Perez APRN, OCC THER [facility] 11/23/23 Office Visit Fang DownsRAPHAEL, OCC THER [facility] 11/17/23 Office Visit Imtiaz Perez APRN, OCC THER [facility] 09/15/23 Office Visit Imtiaz Perez APRN, OCC [facility] 07/13/23 Office Visit Ruiz Live MD [facility] 07/08/23 Telemedicine Ruiz Live MD [facility] 06/17/23 Office Visit Imtiaz Perez APRN, OCC [facility] 04/13/23 Office Visit Imtiaz Perez APRN, OCC TH[facility] 04/05/23 Office Visit Imtiaz Perez APRN, OCC [facility] Showing recent visits within past 365 days and meeting all other requirements Future Appointments Date Type Provider Dept 03/17/24 Appointment Mya Mccoy, [facility] Showing future appointments within next 90 days and meeting all other requirements documented in this encounter Plan of Treatment Not on file documented as of this encounter Visit Diagnoses Diagnosis Chronic pain syndrome documented in this encounter Care Teams Aircraft Engine Dismantler Relationship Specialty Start Date End Date Ruiz Live MD [address] [address] PCP - General Family Medicine 02/17/22 10/28/24 Andrew Christian MD [address] [place] [address] PCP - General Family Medicine 10/29/24 Arnulfo Monreal MD [address] [address] Obstetrics & Gynecology 02/17/22 documented as of this encounter
--- OUTSIDE RECORDS SUMMARY | 2025-01-24 01:15 | XMS_ITS | Encounter Summary ---
Author Organization [facility] Address Formerly [facility] [place] [address] Care Team Providers Care Hide Mill Man Name Role Phone Andrew Christian MD Primary Care Provider [phone] Encounter Details Date Type Department Care Team (Late st Contact Info) Description 04/01/2019 Abstract [facility] [address] [place] [address] , Generic Conversion, Social History Tobacco Use Types Packs/Day Years Used Date Smoking Tobacco: Never Assessed Comments Unknown Sex and Gender Information Value Date Recorded Sex Assigned at Not on file Legal Sex Female 7:31 PM CDT Gender Identity Not on file Sexual Orientation Not on file documented as of this encounter Plan of Treatment Not on file documented as of this encounter Visit Diagnoses Not on filedocumented in this encounter Care Teams Hide Mill Man Relationship Specialty Start Date End Date Andrew Christian MD [address] [place] [address] PCP - General 03/27/13 documented as of this encounter
--- OUTSIDE RECORDS SUMMARY | 2025-01-24 01:15 | XMS_ITS | Encounter Summary ---
Author Organization [facility] Address [address] [place] [address] Phone Care Team Providers Care Lift Electrician Name Role Phone Arnulfo Monreal MD Unavailable [phone] Ruiz Live MD Primary Care Provider [phone] Andrew Christian MD Primary Care Provider [phone] Reason for Visit * Reason Comments Medication Refill Encounter Details Date Type Department Care Team (Late Contact Info) Description 04/14/2022 Refill [facility] - Family Medicine [facility] [address] [place] [address] Ruiz Live MD [address] [place] [address] Medication Refill Social History Tobacco Use Types [...] Master's degree (e.g., MA, MS, Can, MEd, CARE TRANSITION MGR, CHAVEZ) 02/17/2022 Sexually Active Control Partners Comments [...] suspected to have Coronavirus/COVID-19? 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
--- OUTSIDE RECORDS SUMMARY | 2025-01-24 01:16 | XMS_ITS | Encounter Summary ---
Author Organization [facility] Address [address] [place] [address] Phone Care Team Providers Care Mining Engineer Name Role Phone Arnulfo Monreal MD Unavailable [phone] Ruiz Live MD Primary Care Provider [phone] Andrew Christian MD Primary Care Provider [phone] Reason for Visit * Reason Comments Medication Refill Encounter Details Date Type Department Care Team (Late Contact Info) Description 04/29/2023 Refill [facility] - Family Medicine [facility] [address] [place] [phone] Ruiz Live MD [address] [place] [address] Medication Refill Social History Tobacco Use Types [...] Master's degree (e.g., MA, MS, Can, MEd, WASH TUB MACHINE OPERATOR, CHAVEZ) 02/17/2022 Sexually Active Control Partners [...] suspected to have Coronavirus/COVID-19? No / Unsure 04/26/2023 8:00 AM CDT documented as of this encounter Miscellaneous Notes * Telephone Encounter - Kathy Villa RN - 04/30/2023 8:21 AM CDT Medication failed the protocol, provider to review and approve the medication order if appropriate. Requested Prescriptions Pending Prescriptions Disp Refills baclofen (LIORESAL) 10 MG Tablet [Pharmacy Med Name: BACLOFEN 10 MG TABLET] 90 Tablet 0 Sig: TAKE 1 TABLET BY MOUTH THREE TIMES A DAY Not Delegated - Muscle Relaxants Protocol Failed - 04/29/2023 11:35 AM Failed - This refill cannot be delegated Passed - Visit with relevant provider in past 12 months or upcoming 90 days Recent Visits Date Type Provider Dept 04/13/23 Office Visit Imtiaz Perez APRN, [facility] 04/05/23 Office Visit Imtiaz Perez APRN, [facility] 03/01/23 Office Visit Ruiz Live MD [facility] 02/15/23 Telemedicine Ruiz Live MD [facility] 01/26/23 Office Visit Imtiaz Perez APRN, [facility] 12/22/22 Telemedicine Imtiaz Perez APRN, [facility] 12/10/22 Office Visit Ruiz Live MD [facility] 11/30/22 Office Visit Ruiz Live MD [facility] 11/09/22 Office Visit Ruiz Live MD [facility] 11/03/22 Office Visit Imtiaz Perez APRN[facility] Showing recent visits within past 365 days and meeting all other requirements Future Appointments Date Type Provider Dept 05/03/23 Appointment Imtiaz Perez APRN, CNP [facility] 07/02/23 Appointment Ruiz Live MD [facility] Showing future appointments within next 90 days and meeting all other requirements documented in this encounter Plan of Treatment Not on file documented as of this encounter Visit Diagnoses Diagnosis Chronic pain syndrome documented in this encounter Care Teams Mining Engineer Relationship Specialty Start Date End Date Ruiz Live MD [address] [address] PCP - General Family Medicine 02/17/22 10/28/24 Andrew Christian MD [address] [place], [place] [id number] PCP - General Family Medicine 10/29/24 Arnulfo Monreal MD [address] [place], [place] [id number] Obstetrics & Gynecology 02/17/22 documented as of this encounter
--- OUTSIDE RECORDS SUMMARY | 2025-01-24 01:16 | XMS_ITS | Encounter Summary ---
Author Organization [facility] Address [address] [place] [address] Phone Care Team Providers Care Silk Spreader Name Role Phone Arnulfo Monreal MD Unavailable [phone] Ruiz Live MD Primary Care Provider [phone] Andrew Christian MD Primary Care Provider [phone] Reason for Visit * Reason Comments Medication Refill Encounter Details Date Type Department Care Team (Late Contact Info) Description 04/30/2023 Refill [facility] - Family Medicine [facility] [address] [place] [phone] Ruiz Live MD [address] [place] [address] Medication Refill Social History Tobacco Use Types [...] Master's degree (e.g., MA, MS, Can, MEd, SLOT FLOOR PERSON, CHAVEZ) 02/17/2022 Sexually Active Control Partners Comments [...] Telephone Encounter - Reshma Harley RN - 05/01/2023 9:39 AM CDT Duplicate. Already sent to this pharmacy 04/30/23 documented in this encounter Plan of Treatment Not on file documented as of this encounter Visit Diagnoses Diagnosis Lumbar radiculopathy Thoracic or lumbosacral neuritis or radiculitis, unspecified Degenerative disc disease, lumbar Degeneration of lumbar or lumbosacral intervertebral disc documented in this encounter Care Teams Silk Spreader Relationship Specialty Start Date End Date Ruiz Live MD [address] [address] PCP - General Family Medicine 02/17/22 10/28/24 Andrew Christian MD [address] [place] [address] PCP - General Family Medicine 10/29/24 Arnulfo Monreal MD [address] [address] Obstetrics & Gynecology 02/17/22 documented as of this encounter
--- OUTSIDE RECORDS SUMMARY | 2025-01-24 01:16 | XMS_ITS | Encounter Summary ---
Author Organization [facility] Address [address] [place] [address] Phone Care Team Providers Care Mixing House Operator Name Role Phone Arnulfo Monreal MD Unavailable [phone] Ruiz Live MD Primary Care Provider [phone] Andrew Christian MD Primary Care Provider [phone] Reason for Visit * Reason Comments Medication Refill Encounter Details Date Type Department Care Team (Late Contact Info) Description 02/26/2023 Refill [facility] - Family Medicine [facility] [address] [place] [phone] Ruiz Live MD [address] [place] [address] Medication Refill Social History Tobacco Use Types [...] Master's degree (e.g., MA, MS, Can, MEd, PRIMER WATERPROOFING MACHINE ADJUSTER, CHAVEZ) 02/17/2022 Sexually Active Control Partners Comments [...] suspected to have Coronavirus/COVID-19? No / Unsure 03/01/2023 3:44 PM CDT documented as of this encounter Miscellaneous Notes * Telephone Encounter - Kathy Villa RN - 02/26/2023 11:03 AM CDT Medication failed the protocol, provider to review and approve the medication order if appropriate. Requested Prescriptions Pending Prescriptions Disp Refills celecoxib (CeleBREX) 200 MG Capsule [Pharmacy Med Name: CELECOXIB 200 MG CAPSULE] 180 Capsule 3 Sig: TAKE 1 CAPSULE BY MOUTH TWICE A DAY NSAIDs Protocol Failed - 02/26/2023 9:30 AM Failed - Normal serum creatinine in past 12 months CREATININE, BLOOD Date Value Ref Range Status 02/03/2023 0.58 (L) 0.60 - 1.10 mg/dL Final Passed - Visit with relevant provider in past 12 months or upcoming 90 days Recent Visits Date Type Provider Dept 02/15/23 Telemedicine Ruiz Live MD [facility] 01/26/23 Office Visit Imtiaz Perez APRN, [facility] 12/22/22 Telemedicine Imtiaz Perez APRN, [facility] 12/10/22 Office Visit Ruiz Live MD [facility] 11/30/22 Office Visit Ruiz Live MD [facility] 11/09/22 Office Visit Ruiz Live MD [facility] 11/03/22 Office Visit Imtiaz Perez APRN, [facility] 10/21/22 Office Visit Imtiaz Perez APRN, [...] meeting all other requirements Passed - No matching NSAID med order in past 45 days No matching medication orders between 01/12/2023 11:03 AM and 02/26/2023 11:03 AM Passed - AST less than 55 or ALT less than 90 in past 12 months SGOT (AST) Date Value Ref Range Status 02/03/2023 20 <=32 U/L Final SGPT (ALT) Date Value Ref Range Status 02/03/2023 20 <=41 U/L Final Passed - HGB greater than 10 or HCT greater than 30 in past 12 months HEMOGLOBIN (HGB) Date Value Ref Range Status 02/03/2023 12.7 12.0 - 15.8 g/dL Final HEMATOCRIT (HCT) Date Value Ref Range Status 02/03/2023 39.8 36.0 - 47.0 % Final documented in this encounter Plan of Treatment Not on file documented as of this encounter Visit Diagnoses Diagnosis Chronic pain syndrome Chronic left hip pain Pain in joint, pelvic region and thigh documented in this encounter Care Teams Mixing House Operator Relationship Specialty Start Date End Date Ruiz Live MD [address] [place] [address] PCP - General Family Medicine 02/17/22 10/28/24 Andrew Christian MD [address] [address] PCP - General Family Medicine 10/29/24 Arnulfo Monreal MD [address] [place] [address] Obstetrics & Gynecology 02/17/22 documented as of this encounter
--- OUTSIDE RECORDS SUMMARY | 2025-01-24 01:16 | XMS_ITS | Encounter Summary ---
Author Organization [facility] Address [address] [place] [address] Phone Care Team Providers Care Supervisor Stage Carpentry Name Role Phone Arnulfo Monreal MD Unavailable [phone] Rolanda Bauman MD Primary Care Provider [phone] Andrew Christian MD Primary Care Provider [phone] Reason for Visit * Reason Comments Medication Refill Encounter Details Date Type Department Care Team (Late Contact Info) Description 05/27/2023 Refill [facility] - Family Medicine [facility] [address] [place] [phone] Rolanda Bauman MD [address] [place] [address] Medication Refill Social History Tobacco Use Types [...] Master's degree (e.g., MA, MS, Can, MEd, DENTAL HYGIENIST MOBILE COORDINATOR, CHAVEZ) 02/17/2022 Sexually Active Control Partners [...] suspected to have Coronavirus/COVID-19? No / Unsure 05/30/2023 10:48 PM CDT documented as of this encounter Miscellaneous Notes * Telephone Encounter - Kathy Villa RN - 05/27/2023 5:02 PM CDT Images from the original note were not included. Baclofen Dispensed Written Strength Quantity Refills Days Supply Provider Pharmacy BACLOFEN 04/30/2023 04/30/2023 10 MG 90 0 30 , ROLANDA BAUMAN MD [facility] Pharmacy BACLOFEN 04/05/2023 04/05/2023 10 MG 90 0 30 , ROLANDA BAUMAN MD [facility] Pharmacy BACLOFEN 03/11/2023 03/11/2023 10 MG 90 0 30 , ROLANDA BAUMAN MD [facility] Pharmacy BACLOFEN 02/15/2023 02/15/2023 10 MG 90 0 30 , ROLANDA BAUMAN MD [facility] Pharmacy Pt has received 5-6 days early every month. She is not due until 06/14/23 documented in this encounter Plan of Treatment Not on file documented as of this encounter Visit Diagnoses Diagnosis Chronic pain syndrome documented in this encounter Care Teams Supervisor Stage Carpentry Relationship Specialty Start Date End Date Rolanda Bauman MD [address] [place] [address] PCP - General Family Medicine 02/17/22 10/28/24 Andrew Christian MD [address] [address] PCP - General Family Medicine 10/29/24 Arnulfo Monreal MD [address] [facility] [address] [place] [address] Obstetrics & Gynecology 02/17/22 documented as of this encounter
--- OUTSIDE RECORDS SUMMARY | 2025-01-24 01:16 | XMS_ITS | Encounter Summary ---
Author Organization [facility] Address [address] [place] [address] Phone Care Team Providers Care Store Stock Associate Name Role Phone Arnulfo Monreal MD Unavailable [phone] Rolanda Bauman MD Primary Care Provider [phone] Andrew Christian MD Primary Care Provider [phone] Reason for Visit * Reason Comments Medication Refill Encounter Details Date Type Department Care Team (Late Contact Info) Description 05/13/2023 Refill [facility] - Family Medicine [facility] #2 [place] [phone] Rolanda Bauman MD [address] [place] [address] Medication Refill Social History Tobacco Use Types [...] Master's degree (e.g., MA, MS, Can, MEd, CONE TRUCKER, CHAVEZ) 02/17/2022 Sexually Active Control Partners Comments [...] suspected to have Coronavirus/COVID-19? No / Unsure 05/10/2023 9:04 AM CDT documented as of this encounter Miscellaneous Notes * Telephone Encounter - Kathy Villa RN - 05/14/2023 10:58 AM CDT Images from the original note were not included. Baclofen Dispensed Written Strength Quantity Refills Days Supply Provider Pharmacy BACLOFEN 04/30/2023 04/30/2023 10 MG 90 0 30 , ROLANDA BAUMAN MD [facility] Pharmacy BACLOFEN 04/05/2023 04/05/2023 10 MG 90 0 30 , ROLANDA BAUMAN MD [facility] Pharmacy BACLOFEN 03/11/2023 03/11/2023 10 MG 90 0 30 , ROLANDA BAUMAN MD [facility] Pharmacy BACLOFEN 02/15/2023 02/15/2023 10 MG 90 0 30 , ROLANDA BAUMAN MD [facility] Pharmacy BACLOFEN 01/22/2023 01/21/2023 10 MG 90 0 30 , ROLANDA BAUMAN MD [facility] Pharmacy documented in this encounter Plan of Treatment Not on file documented as of this encounter Visit Diagnoses Diagnosis Chronic pain syndrome documented in this encounter Care Teams Store Stock Associate Relationship Specialty Start Date End Date Rolanda Bauman MD [address] [place], [place] [address] PCP - General Family Medicine 02/17/22 10/28/24 Andrew Christian MD [address] [address] PCP - General Family Medicine 10/29/24 Arnulfo Monreal MD [address] [place] [address] Obstetrics & Gynecology 02/17/22 documented as of this encounter
--- OUTSIDE RECORDS SUMMARY | 2025-01-24 01:16 | XMS_ITS | Encounter Summary ---
Author Organization [facility] Address [address] [place] [address] Phone Care Team Providers Care Physics Teacher Name Role Phone Arnulfo Monreal MD Unavailable [phone] Ruiz Live MD Primary Care Provider [phone] Andrew Christian MD Primary Care Provider [phone] Reason for Visit * Reason Comments Medication Refill Encounter Details Date Type Department Care Team (Late Contact Info) Description 02/13/2023 Refill [facility] - Family Medicine [facility] #2 [place] [phone] Ruiz Live MD [address] [place] [address] Medication Refill Social History Tobacco Use Types [...] Master's degree (e.g., MA, MS, Can, MEd, PROJECT OFFICER, CHAVEZ) 02/17/2022 Sexually Active Control Partners Comments [...] suspected to have Coronavirus/COVID-19? No / Unsure 02/12/2023 1:55 PM CDT documented as of this encounter Miscellaneous Notes * Telephone Encounter - Flora Molina RN - 02/15/2023 8:26 AM CDT Medication failed the protocol, provider to review and approve the medication order if appropriate. Requested Prescriptions Pending Prescriptions Disp Refills furosemide (LASIX) 20 MG Tablet [Pharmacy Med Name: FUROSEMIDE 20 MG TABLET] 60 Tablet 0 Sig: TAKE 2 TABLETS BY MOUTH DAILY Diuretics Protocol Passed - 02/13/2023 1:34 PM Passed - Serum potassium on record in past 12 months POTASSIUM Date Value Ref Range Status 02/03/2023 4.0 3.5 - 5.1 mmol/L Final Passed - Serum sodium on record in past 12 months SODIUM Date Value Ref Range Status 02/03/2023 136 136 - 144 mmol/L Final Passed - Blood pressure on record in past 12 months Clinician-entered: BP Readings from Last 3 Encounters: 02/13/23 136/60 01/26/23 120/72 12/10/22 124/72 Patient-entered: No data recorded Passed - Visit with relevant provider in past 12 months or upcoming 90 days Recent Visits Date Type Provider Dept 01/26/23 Office Visit Imtiaz Perez APRN, [facility] 12/22/22 Telemedicine Imtiaz Perez APRN, [facility] 12/10/22 Office Visit Ruiz Live MD [facility] 11/30/22 Office Visit Ruiz Live MD [facility] 11/09/22 Office Visit Ruiz Live MD [facility] 11/03/22 Office Visit Imtiaz Perez APRN, [facility] 10/21/22 Office Visit Imtiaz Perez APRN, [facility] 09/24/22 Office Visit Ruiz Live MD [facility] 08/28/22 Office Visit Ruiz Live MD [facility] 07/30/22 Office Visit Ruiz Live MD [facility] Showing recent visits within past 365 days and meeting all other requirements Today's Visits Date Type Provider Dept 02/15/23 Appointment Ruiz Live MD [facility] Showing today's visits and meeting all other requirements Future Appointments Date Type Provider Dept 03/01/23 Appointment Ruiz Live MD [facility] Showing future appointments within next 90 days and meeting all other requirements Passed - GFR on record in past 12 months GFR, EST. NONAFRICAN Date Value Ref Range Status 02/03/2023 >60 >=60 Final baclofen (LIORESAL) 10 MG Tablet [Pharmacy Med Name: BACLOFEN 10 MG TABLET] 90 Tablet 0 Sig: TAKE 1 TABLET BY MOUTH THREE TIMES A DAY Not Delegated - Muscle Relaxants Protocol Failed - 02/13/2023 1:34 PM Failed - This refill cannot be delegated Passed - Visit with relevant provider in past 12 months or upcoming 90 days Recent Visits Date Type Provider Dept 01/26/23 Office Visit Imtiaz Perez APRN, [facility] 12/22/22 Telemedicine Imtiaz Perez APRN, [facility] 12/10/22 Office Visit Ruiz Live MD [...] 365 days and meeting all other requirements Today's Visits Date Type Provider Dept 02/15/23 Appointment Ruiz Live MD [facility] Showing today's visits and meeting all other requirements Future Appointments Date Type Provider Dept 03/01/23 Appointment Ruiz Live MD [facility] Showing future appointments within next 90 days and meeting all other requirements documented in this encounter Plan of Treatment Not on file documented as of this encounter Visit Diagnoses Diagnosis Localized edema Edema Chronic pain syndrome documented in this encounter Care Teams Physics Teacher Relationship Specialty Start Date End Date Ruiz Live MD [address] [place] [address] PCP - General Family Medicine 02/17/22 10/28/24 Andrew Christian MD [address] [place], [place] [id number] PCP - General Family Medicine 10/29/24 Arnulfo Monreal MD [address] [place], [place] [id number] Obstetrics & Gynecology 02/17/22 documented as of this encounter
--- OUTSIDE RECORDS SUMMARY | 2025-01-24 01:16 | XMS_ITS | Encounter Summary ---
Author Organization [facility] Address [address] [place] [address] Phone Care Team Providers Care Electric Frying Pan Repairer Name Role Phone Arnulfo Monreal MD Unavailable [phone] Ruiz Live MD Primary Care Provider [phone] Andrew Christian MD Primary Care Provider [phone] Reason for Visit * Reason Comments Medication Refill Encounter Details Date Type Department Care Team (Late Contact Info) Description 01/21/[address] [facility] - Family Medicine [facility] [address] [place] [id number] Imtiaz Perez APRN, MATERIALS TECH #[address] [address] Medication Refill Social History Tobacco Use Types [...] Master's degree (e.g., MA, MS, Can, MEd, AUTOMOTIVE TEACHER, CHAVEZ) 02/17/2022 Sexually Active Control Partners [...] suspected to have Coronavirus/COVID-19? No / Unsure 01/18/2023 4:10 PM CDT documented as of this encounter Miscellaneous Notes * Telephone Encounter - Flora Molina RN - 01/21/2023 8:51 AM CDT Medication failed the protocol, provider to review and approve the medication order if appropriate. Requested Prescriptions Pending Prescriptions Disp Refills baclofen (LIORESAL) 10 MG Tablet [Pharmacy Med Name: BACLOFEN 10 MG TABLET] 90 Tablet 0 Sig: TAKE 1 TABLET BY MOUTH THREE TIMES A DAY Not Delegated - Muscle Relaxants Protocol Failed - 01/21/2023 8:35 AM Failed - This refill cannot be delegated Passed - Visit with relevant provider in past 12 months or upcoming 90 days Recent Visits Date Type Provider Dept 12/22/22 Telemedicine Imtiaz Perez APRN, JOAQUIN [place] Jay 12/10/22 Office Visit Ruiz Live MD [...] syndrome documented in this encounter Care Teams Electric Frying Pan Repairer Relationship Specialty Start Date End Date Ruiz Live MD [address] [place] [address] PCP - General Family Medicine 02/17/22 10/28/24 Andrew Christian MD [address] [place] [address] PCP - General Family Medicine 10/29/24 Arnulfo Morneal MD [address] [place], [place] [id number] Obstetrics & Gynecology 02/17/22 documented as of this encounter
--- OUTSIDE RECORDS SUMMARY | 2025-01-24 01:16 | XMS_ITS | Encounter Summary ---
Author Organization [facility] Address [address] [place] [address] Phone Care Team Providers Care Human Geography Instructor Name Role Phone Arnulfo Monreal MD Unavailable [phone] Ruiz Live MD Primary Care Provider [phone] nAdrew Christian MD Primary Care Provider [phone] Reason for Visit * Reason Comments Medication Refill Encounter Details Date Type Department Care Team (Late Contact Info) Description 03/10/2023 Refill [facility] - Family Medicine [facility] [address] [place] [id number] Ruiz Live MD [address] [place] [address] Medication Refill Social History Tobacco Use Types [...] Master's degree (e.g., MA, MS, Can, MEd, CUSTOMER SERVICE RECEPTIONIST, CHAVEZ) 02/17/2022 Sexually Active Control Partners Comments [...] Telephone Encounter - Kathy Villa RN - 03/11/2023 9:28 AM CDT Medication failed the protocol, provider to review and approve the medication order if appropriate. Requested Prescriptions Pending Prescriptions Disp Refills baclofen (LIORESAL) 10 MG Tablet [Pharmacy Med Name: BACLOFEN 10 MG TABLET] 90 Tablet 0 Sig: TAKE 1 TABLET BY MOUTH THREE TIMES A DAY Not Delegated - Muscle Relaxants Protocol Failed - 03/10/2023 9:35 AM Failed - This refill cannot be delegated Passed - Visit with relevant provider in past 12 months or upcoming 90 days Recent Visits Date Type Provider Dept 03/01/23 Office Visit Ruiz Live MD [facility] [...] syndrome documented in this encounter Care Teams Human Geography Instructor Relationship Specialty Start Date End Date Ruiz Live MD [address] [address] PCP - General Family Medicine 02/17/22 10/28/24 Andrew Christian MD [address] [address] PCP - General Family Medicine 10/29/24 Arnulfo Monreal MD [address] [place] [address] Obstetrics & Gynecology 02/17/22 documented as of this encounter
--- OUTSIDE RECORDS SUMMARY | 2025-01-24 01:16 | XMS_ITS | Clinical Summary ---
Author Organization [facility] Address [address] [place] [address] Care Team Providers Care Tip Puncher Name Role Phone Issac Woods MD Unavailable Issac Woods MD Unavailable Andrew Christian MD Primary Care Provider [phone] Source Comments [facility],non-owned Affiliates and Associated Physician Practices is amultiple site organization consisting of ambulatory clinics and hospital sitesin [place], [place], [place] and [place]. This disclosure is being madepursuant to the Care Everywhere program and may not contain all information available regarding this patient. Last updated 18.[facility] Allergies Active Allergy Reactions Criticality Noted Date Comments Nsaids Other 06/25/2016 PT HAD GASTRIC SLEEVE - Pt can't take NSAIDS orally but, can take them thriugh IV. Wound Dressing Adhesive Itching Low 09/23/2020 Medications * Be aware that medications may not be up to date on this document. Alwaysverify current medications with the patient. Medication Sig Dispensed Refills Start Date End Date Status levothyroxine (SYNTHROID) 25 MCG tabletIndications:Hy pothyroidism Take 1 (one) tablet by mouth daily before breakfast Reasons: Underactive Thyroid Active multivitamin daily (THERAGRAN) tabletIndications:Nu tritional Support Take 1 (one) tablet by mouth daily with food Reasons: Nutritional Support Active albuterol HFA (PROVENTIL;VENTOLIN; PROAIR) 108 (90 BASE) MCG/ACT inhalerIndications:E xercise-Induced Bronchospastic Disease Inhale 2 Puffs by mouth every 6 hours as needed for Shortness of Breath or Wheezing Reasons: Exercise-Induced Bronchospasm 18 g 0 07/13/2016 Active celecoxib (CeleBREX) 200 MG capsule Take 1 (one) capsule by mouth 2 times daily 02/17/2022 Active pregabalin (Lyrica) 150 MG capsule Take 1 (one) capsule by mouth 3 times daily 07/30/2022 Active DULoxetine (Cymbalta) 60 MG capsule Take 1 (one) capsule by mouth once daily Active Drysol 20 % solution APPLY DAILY IN THE MORNING 02/15/2023 Active baclofen (Lioresal) 10 MG tablet Take 1 (one) tablet by mouth 3 times daily 04/05/2023 Active clindamycin-benzoyl peroxide (Benzaclin) 1-5 % gel APPLY TOPICALLY TWICE A DAY 03/27/2023 Active lidocaine (Xylocaine) 5 % ointment APPLY TO AFFECTED AREA TWICE A DAY NEEDED FOR KNEE PAIN. 03/09/2022 Active omeprazole (PriLOSEC) 20 MG capsule Take 1 (one) capsule by mouth 2 times daily, before breakfast and supper Active prochlorperazine (Compazine) 10 MG tablet TAKE 1 TABLET BY MOUTH EVERY 8 HOURS NEEDED FOR NAUSEA - 2ND LINE. 01/26/2023 Active Ubrelvy 100 MG tablet Take 1 (one) tablet by mouth once as needed 03/01/2023 Active DULoxetine (Cymbalta) 30 MG capsule Take 1 (one) capsule by mouth at bedtime 08/02/2023 Active tretinoin (Retin-A) 0.1 % cream APPLY TOPICALLY EVERY NIGHT AT BEDTIME 08/05/2023 Active vilazodone (Viibryd) 40 MG tablet Take 1 (one) tablet by mouth once daily 08/10/2023 Active ALPRAZolam (Xanax) 0.5 MG tablet Take 1 (one) tablet by mouth 2 times daily as needed for anxiety 01/20/2024 Active vitamine D3 (Cholecalciferol) 250 MCG (35499 UT) capsule Take 1 (one) capsule by mouth once daily Active erythromycin (Romycin) 5 MG/GM ophthalmic ointment PLACE 1 CM IN RIGHT EYE 4 TIMES DAILY FOR 7 DAYS. 05/07/2024 Active LORazepam (Ativan) 1 MG tablet Take 1 (one) tablet by mouth 01/31/2024 Active meclizine (Antivert) 25 MG tablet Take 1 (one) tablet by mouth 3 times daily as needed 11/23/2023 Active mirabegron ER 24hr (Myrbetriq) 25 MG tablet Take 1 (one) tablet by mouth once daily Active prednisoLONE acetate (Pred Forte) 1 % ophthalmic suspension PLEASE SEE ATTACHED FOR DETAILED DIRECTIONS 05/11/2024 Active predniSONE (Deltasone) 10 MG tablet Take 1 (one) tablet by mouth 2 times daily 01/14/2024 Active tolterodine ER 24hr (Detrol LA) 4 MG capsule Take 1 (one) capsule by mouth once daily 01/19/2024 Active tirzepatide (Zepbound) 2.5 MG/0.5ML injection Inject 2.5 (two and one-half) mg subcutaneously every 7 days 02/22/2024 Active sulfacetamide (Bleph-10) 10 % ophthalmic solution Instill 1 (one) drop into both eyes every 4 hours 05/07/2024 Active folic acid (Folvite) 1 MG tablet Take 1 (one) tablet by mouth once daily 08/09/2024 Active methotrexate 2.5 MG tablet Take by mouth every 7 days 09/04/2024 Active nicotine (Nicoderm CQ) 21 MG/24HR patch APPLY 1 PATCH TRANSDERMALLY DAILY 08/14/2024 Active traMADol (Ultram) 50 MG tablet Take 1 (one) tablet by mouth 3 times daily as needed 09/14/2024 Active predniSONE (Deltasone) 5 MG tablet TAKE 1-3 TABLETS BY ORAL ROUTE DAILY NEEDED FOR IMMEDIATE ARTHRITIS RELIEF 08/09/2024 Active Active Problems Problem Noted Date Diagnosed Date Hip arthritis 05/18/2023 Immunizations Name Administration Dates Next Due HEP A VACCINE, ADULT 11/28/2013,03/04/2007 HEP B VACCINE, ADULT 3 DOSE 10/25/2014 TDAP (7yrs+) 03/22/2017 Family History Medical History Relation Name Comments Negative Family History Other Relation Name Status Comments Other Social History Tobacco Use Types Packs/Day Years Used Date Smoking Tobacco: Every Day Cigarettes 0.5 8 Smokeless Tobacco: Never Tobacco Cessation:Ready to Q uit: Not Asked; Counseling Given: Not Answered Comments:Reports 3/4 of a pack per day and using nicotene patches Alcohol Use Standard Drinks/Week Comments Not Currently 0 (1 standard drink = 0.6 oz pur e alcohol) OASIS D0700: Social Isolation Answer Da te Recorded Frequency of experiencing loneliness or isolatio n Never 06/03/2023 OASIS A1250: Transportation Answer Date Recorded Lack of Transportation (Medical) No 06/03/2023 Lack of Transportation (Non-Medical) No 06/03/2023 Patient Unable or Declines to Respond No 06/03/2023 OASIS B1300: Health Literacy Answer Tesfaye e Recorded Frequency of needing help to read materials from doctor or pharmacy Never 06/03/2023 AUDIT-C Answer Date Recorded Q1: How often do you have a drink containing alcohol? Never 05/18/2023 Q2: How many drinks containi ng alcohol do you have on a typical day when you are drinking? Patient does not drink Q3: How often do you have si x or more drinks on one occasion? Never 05/18/2023 PHQ-2 Answer Date Recorded Patient Health Questionnaire-2 Score 3 12/18/2024 Hunger Vital Sign Answer Date Recorded Within the past 12 months, y ou worried that your food would run out before you got the money to buy more. Never true 05/19/20 23 Within the past 12 months, t he food you bought just didn't last and you didn't have money to get more. Never true 05/19/2023 Sex and Gender Information Value Date Recorded Sex Assigned at Not on file Gender Identity Not on file Sexual Orientation Not on file Last Filed Vital Signs Vital Sign Reading Time Taken Comments Blood Pressure 136/86 09/20/2024 2:37 PM [facility] Pulse 72 09/20/2024 2:03 PM [facility] Temperature 36.5 C (97.7 F) 09/20/2024 1:52 PM [facility] Respiratory Rate 18 06/18/2023 3:09 PM CDT Oxygen Saturation 94% 09/20/2024 2:03 PM [facility] Inhaled Oxygen Concentration - - Weight 127.6 kg (281 lb 6.4 oz) 09/20/2024 1:52 PM [facility] Height 167.6 cm (5' 6 ) 09/20/2024 1:52 PM [facility] Body Mass Index 45.42 09/20/2024 1:52 PM [facility] Plan of Treatment Health Maintenance Due Date Last Done Comments LIPID TESTING 1981 HIV SCREENING 1996 HEPATITIS C SCREENING 07/03/1999 PNEUMOCOCCAL VACCINE (1 of 2 - PCV) 2000 HEPATITIS B VACCINE (2 of 3 - 19+ 3-dose series) 11/22/2014 10/25/2014 COVID-19 VACCINE (4 - 2023- season) 2024 07/15/2022, 07/11/2021, 06/13/2021 DEPRESSION SCREENING 10/25/2024 06/15/2024 INFLUENZA VACCINE (Season Ended) 2025 PAP SMEAR 08/03/2025 08/03/2022 MAMMOGRAM 03/17/2026 03/17/2024, 02/23, 12/28/2022, Additional history exists DTAP/TDAP/TD VACCINES (2 - Td or Tdap) 03/22/2027 03/22/2017 SCREENING FOR DIABETES 09/20/2027 , 09/20/2024, 05/18/2023, Additional history exists ZOSTER VACCINE (1 of 2) 2031 HIB VACCINE Aged Out No longer eligi ble based on patient's age to complete this topic HPV VACCINE Aged Out No longer eligi ble based on patient's age to complete this topic MENINGOCOCCAL (Group B) VACCINE SHARED DECISION-MAKING Aged Out No longer eligible based on patient's age to complete this topic MENINGOCOCCAL GROUPS A/C/Y/W VACCINE Aged Out No longer eligible based on patient's age to complete this topic Medical Devices Implanted Type Area Telecommunications Professional Device Identifier Shelf Expiration Date Model / Serial / Lot Shell Actb 50mm Hip 3 Hl R3 Implanted:Qty: 1 on 05/18/2023 by Sebastian Sow IV, MD at [facility] Right: Hip [employer] 12/25/2031 [id number] / / [id number] Screw 6.5mm 35mm Hip Actb Canc Sphrcl Implanted:Qty: 1 on 05/18/2023 by Sebastian Sow IV, MD at [facility] Right: Hip [employer] 01/18/2033 [id number] / / [id number] Liner Actb R3 +4mm 50mm 36mm Xlpe Hip Implanted:Qty: 1 on 05/18/2023 by Sebastian Sow IV, MD at [facility] Right: Hip [employer] 11/08/2032 [id number] / / [id number] Stem Fem 136mm Hip 1 Lat Ofst Intgr-+ Implanted:Qty: 1 on 05/18/2023 by Sebastian Sow IV, MD at [facility] Right: Hip [employer] 03/02/2028 [id number] / / [id number] Head Fem +4mm 10/07 Tpr 36mm Hip Oxnm Implanted:Qty: 1 on 05/18/2023 by Sebastian Sow IV, MD at [facility] Right: Hip [employer] 01/09/2033 [id number] / / [id number] Explanted Type Area Telecommunications Professional Device Identifier Shelf Expiration Date Model / Serial / Lot Pin Hlf 255mm 5mm Jtx Lng Orth Ss 45mm Explanted:Qty: 1 on 05/18/2023 by Sebastian Sow IV, MD at [facility] Right: Hip [employer] [id number] / / Procedures Procedure Name Priority Date/Time Associated Diagnosis Comments HEMOGLOBIN A1C STAT 09/20/2024 1:51 PM [facility]ER Preoperative examination from Last 3 Months or Most Recently Relevant to Health Maintenance Results * HEMOGLOBIN A1C (09/20/2024 1:51 PM [facility]) Hemoglobin A1c 5.2 <5.7 % 09/20/2024 2:10 PM [facility] Estimated Average Glucose 103 mg/dL 09/20/2024 2:10 PM [facility] Blood BLOOD SPECIMEN / Unknown Venipuncture / Unknown 09/20/2024 1:51 PM [facility] 09/20/2024 1:56 PM [facility] - 09/20/2024 2:10 PM [facility]ST [facility]ER HbA1c Interpretation: Normal: < 5.7% Pre-diabetes: 5.7-6.4% Diabetes: Equal to or greater than 6.5% Test results diagnostic of diabetes should be repeated for confirmation. Treatment target values recommended by ADA and other clinical organizations should be used to evaluate metabolic control in patients. This test should not replace glucose testing for patients with Type 1 diabetes, pediatric patients, or women. Falsely low HbA1c results may be observed in patients with clinical conditions that shorten erythrocyte life span or decrease mean erythrocyte age such as the presence of unstable hemoglobin variants, elevated hemoglobin F level or other causes of hemolytic anemia. HbA1c may not accurately reflect glycemic control when clinical conditions that affect erythrocyte survival are present. Severe Iron deficiency anemia may yield falsely high results. Hemoglobin A1c assay should not be used to diagnose or monitor diabetes in patients with malignancy, recent blood transfusion, chronic kidney or liver disease. This method may yield falsely low results when hemoglobin (HbF) exceeds 5% in the specimen. The Eden Alinity assay for the measurement of HbA1c is a National Glycohemoglobin Standardization Program (NGSP) certified method. Kathy Larose FOREST AIDE-MANUFACTURING ENGINEERING PROFESSOR LAB - CHEMISTRY O RDERABLES Performing Organization Address City/State/[facility] Co de Phone Number [facility] [address] [id number] from Last 3 Months or Most Recently Relevant to Health Maintenance Advance Directives * Full Code (Latest Code Status on File) Date Activated Date Inactivated Comments 05/18/2023 12:29 PM 05/19/2023 2:36 PM * Full Code Date Activated Date Inactivated Comments 07/11/2016 6:08 AM 07/13/2016 6:16 PM * Full Code Date Activated Date Inactivated Comments 06/26/2016 6:57 AM 07/08/2016 5:20 PM * Full Code Date Activated Date Inactivated Comments 03/25/2015 2:02 PM 03/27/2015 6:25 PM Care Teams Tip Puncher Relationship Specialty Start Date End Date Andrew Christian MD [address] [place] [id number] PCP - General Family Medicine 09/20/24 [place] [address] [place] [address] Rheumatology 08/11/22 [place] [address] [place] [address] Rheumatology 08/11/22
--- OUTSIDE RECORDS SUMMARY | 2025-01-24 01:16 | XMS_ITS | Continuity of Care Document ---
Author Organization [facility] Address [address] [place] [address] Phone Care Team Providers Care Email Marketing Intern Name Role Phone Tereza Terry PT Unavailable Unavailable Procedures Procedure Date Progress Note Therapeutic Exercise Therapeutic Activities Neuromuscular Re-Ed Manual Therapy Hot or Cold Pack Therapeutic Exercise Therapeutic Activities Neuromuscular Re-Ed Manual Therapy Hot or Cold Pack Therapeutic Exercise Therapeutic Activities Neuromuscular Re-Ed Manual Therapy Hot or Cold Pack Therapeutic Exercise Neuromuscular Re-Ed Manual Therapy Hot or Cold Pack Therapeutic Exercise Neuromuscular Re-Ed Manual Therapy Hot or Cold Pack Therapeutic Exercise Neuromuscular Re-Ed Manual Therapy Hot or Cold Pack PT Evaluation Low Complexity Therapeutic Exercise Manual Therapy Advance Directives Directive Yes / No Effective Date File Name No Information Encounters Encounter Description Practice Location Reason(s) For Visit Diagnoses Date Provider Providers Copied on Encounter [facility], [address], [place], [place], [id number], [place] tel:[phone] [place] Lumbago with sciatica, left sideStiffness of unspecified joint, not elsewhere classifiedOth symptoms and signs involving the musculoskeletal systemAbnormal posture Mar-3 0-201 8 Muehl Tereza. [address] [place] [address], [address], [place], [address], [place]. tel:[phone] Referring Provider: Andrew Christian, [address] [place], [address]. tel:[phone] [address] [place] [address], [address] [place] [address], [id number], [place] tel:[phone] [place] Lumbago with sciatica, left sideStiffness of unspecified joint, not elsewhere classifiedOth symptoms and signs involving the musculoskeletal systemAbnormal posture Mar-2 3-201 8 Muehl Tereza. [address] [place] [address], [address], [place], [address], [place]. tel:[phone] Referring Provider: Andrew Christian, [address] [place], [address]. tel:[phone] [address] [place] [address], [address] [place] [address], [id number], [place] tel:[phone] [place] Lumbago with sciatica, left sideStiffness of unspecified joint, not elsewhere classifiedOth symptoms and signs involving the musculoskeletal systemAbnormal posture Mar-2 0-201 8 Muehl Tereza. [address] [place] [address], [address], [place], [address], [place]. tel:[phone] Referring Provider: Andrew Christian, [address] [place], [address]. tel:[phone] [address] [place] [address], [id number], [place] tel:[phone] Jay No Information Dec-1 6-201 8 Muehl Tereza. [address] [place] [address], [address], [place], [address], [place]. tel:[phone] Referring Provider: Andrew Christian, [address] [place], [address]. tel:[phone] [address] [place] [address], [id number], tel:[phone] Jay No Information Dec-1 3-201 8 Muehl Tereza. [address] [place] [address], [place] [address], [place], [place], . tel:[phone] Referring Provider: Andrew Christian, [address] [place], [address]. tel:[phone] [address], [id number], tel:[phone] Jay No Information Dec-0 6-201 8 Muehl Tereza. [address] [place] [address], [address], [place], [place]. tel:[phone] Referring Provider: Andrew Christian, [address] [place], [address]. tel:[phone] [address], [id number], tel:[phone] [place] Lumbago with sciatica, left sideStiffness of unspecified joint, not elsewhere classifiedOth symptoms and signs involving the musculoskeletal systemAbnormal posture Dec-0 2-201 8 Muehl Tereza. [address] [place] [address], [place] [address], [place], [place], [place]. tel:[phone] Referring Provider: Andrew Christian, [address] [place], [address]. tel:[phone] Family History Family Member Type Diagnosis Age At Onset No Information Payers Payer name Insurance type Covered alliance party ID Authorcarlitoa tisabine(s) [facility] [id number] Social History Type Description Quantity Date Captured Comments Sex Female Smoking Status No Information Chief Complaint And Reason For Visit No Information Reason For Referral Reason For Referral No Information History Of Present Illness Encounter Date Complaint History Of Prese nt Illness No Information Functional Status Date Functional Assessmen t No Information Instructions Date Instruction Additional Infor mation No Information Assessments Type Assessment Date No Information Patient Care Teams Name Effective Dates (start - stop) Status Members No Information
[2025-01-24 06:19] VITALS: BP 137/86; PULSE 80; RESP 18; TEMP 36.1; O2SAT 96
[2025-01-24] MEDS: LACTATED RINGERS 1,000 ML 150 ML IV CONT (06:27)
--- NOTE | 2025-01-24 06:59 | WPDANESEPPF ---
Anes - Initial Pre Proc Eval Procedure: Operation Date: 01/24/25 07:30 Proposed Procedures p Colonoscopy - Mehran Mullins MD Date/Time: 01/24/25 06:59 Surgeon: Mehran Mullins MD Pre Op Diagnosis: Personal history of colon polyps, unspecified Patient Data Age: 44 Gender: F Height: 1.7 m Weight: 129.6 kg Last Vital Signs Temp 36.1 C L 01/24/25 06:19 Pulse 80 01/24/25 06:19 Resp 18 01/24/25 06:19 BP 137/86 01/24/25 06:19 Pulse Ox 96 01/24/25 06:19 O2 Del Method Room Air 01/24/25 06:19 Allergies Allergy/AdvReac Type Severity Reaction Status Date / Time adhesive tape Allergy Intermediate Rash Verified 01/24/25 06:15 NSAIDS (Non-Steroidal Allergy Unknown Unknown Verified 01/24/25 06:15 Anti-Inflamma Home Medications ?Medication ?Instructions ?Recorded ?Confirmed ?Type levothyroxine 25 mcg tablet 25 mcg PO DAILY 10/03/19 01/24/25 History (Synthroid) [id number] 45 mg-folic 1 cap PO DAILY #90 caps 11/27/19 01/24/25 Rx acid 800 mcg-vit K 120 mcg capsule (Bariatric Multivitamins) duloxetine 60 mg capsule,delayed 60 mg PO DAILY 02/03/22 01/24/25 History release (Cymbalta) lidocaine 5 % topical ointment 1 applic topical BID PRN knee pain 03/06/22 01/23/25 Rx #60 grams vilazodone 40 mg tablet (Viibryd) 40 mg PO DAILY 08/02/23 01/24/25 History clindamycin 1 %-benzoyl peroxide 5 1 applic topical BID #25 grams 09/07/23 01/24/25 Rx % topical gel tolterodine 4 mg capsule,extended mg PO 04/03/24 09/04/24 History release 24 hr albuterol sulfate 90 mcg/actuation 1 inh inhalation Q4H PRN 05/29/24 01/22/25 Rx aerosol inhaler bronchospasm #6.7 grams celecoxib 200 mg capsule (Celebrex) 200 mg PO BID #60 caps 05/29/24 01/22/25 Rx brexpiprazole 0.5 mg tablet 1 mg PO DAILY 06/20/24 01/24/25 History (Rexulti) duloxetine 30 mg capsule,delayed 30 mg PO DAILY 06/20/24 01/24/25 History release methotrexate sodium 2.5 mg tablet 2.5 mg PO WEEKLY 09/04/24 01/24/25 History prednisone 5 mg tablet 5 mg PO DAILY PRN pain 09/04/24 01/23/25 History tramadol 50 mg tablet 50 mg PO TID PRN pain 09/04/24 01/23/25 History valacyclovir 1 gram tablet 1,000 mg PO Q8H #21 tabs 09/04/24 01/24/25 Rx (Valtrex) omeprazole 20 mg capsule,delayed 20 mg PO BID #60 caps 09/24/24 01/24/25 Rx release tirzepatide (weight loss) 2.5 2.5 mg (0.5 mL) subcut WEEKLY #2 mL 11/17/24 01/24/25 Rx mg/0.5 mL subcutaneous pen injector (Zepbound) tretinoin 0.1 % topical cream 1 applic topical QHS #20 grams 11/17/24 01/24/25 Rx ubrogepant 100 mg tablet (Ubrelvy) 100 mg PO ONCE #10 tabs 11/17/24 01/23/25 Rx baclofen 10 mg tablet 10 mg PO TID #90 tabs 12/11/24 01/24/25 Rx pregabalin 150 mg capsule (Lyrica) 150 mg PO TID #90 caps 12/11/24 01/24/25 Rx nicotine 21 mg/24 hr daily 1 patch transdermal DAILY #28 ea 01/16/25 01/24/25 Rx transdermal patch (Nicoderm CQ) etanercept 50 mg/mL (1 mL) 50 mg subcut WEEKLY 01/23/25 01/24/25 History subcutaneous pen injector (Enbrel SureClick) meloxicam 7.5 mg tablet 7.5 mg PO DAILY 01/23/25 01/24/25 History mirabegron 50 mg tablet,extended 50 mg PO Q24H 01/23/25 01/24/25 History release 24 hr Patient hx anesthesia problems: none Family hx anesthesia problems: none Results Review: All pre-operative results and documents have been reviewed as part of the pre-operative evaluation. [facility] Past Medical History Medical History (Updated 01/23/25 @ 13:37 by Jake Harris DO) CELIA (obstructive sleep apnea) Asthma Mitral valve regurgitation Body mass index (BMI) of 40.1 to 44.9 in adult Tobacco abuse Anxiety and depression Hypothyroidism, unspecified Irregular heartbeat Surgical History Surgical History History of partial hysterectomy History of right hip replacement History of left hip replacement History of lumbar fusion History of sleeve gastrectomy History of cholecystectomy History of appendectomy Family History Family History Father Family history of heart disease in male family member before age 55 Depression Family history of alcoholism Grandparent Family history of heart disease in male family member before age 55 Family history of cataracts Family history of congestive heart failure Diabetes mellitus Mother Depression Family history of arthritis Uterine carcinoma Sibling Asthma Breast cancer Cervical cancer Sibling Narcolepsy Social History Social History Smoking packs per day: 1 Smoking cigarettes per day: 20.0 Years smoked: 10 Smoking pack-years: 10.00 Smoking status: Current every day smoker Tobacco type: cigarettes Second hand tobacco smoke exposure: Yes Alcohol intake: never Substance use: current Substance use type: marijuana Last use: 01/22/2025 Living arrangements: with family Occupation/Education: occupation 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 Gender identity (if verbalized by the patient): Female Spiritual care concerns: No Agree to blood products: Yes Anes - Eval Final PreProcedure Day of Procedure 01/24/25 06:59 Patient weight: morbidly obese Heart: regular rate and rhythm Lungs: clear to auscultation Airway: Mallampati scale class II Neurological: alert and oriented Last oral intake: >/= 8 hours ASA classification: III Emergent: no Anesthetic plan: proceed Anesthesia type and monitoring: general GIVS and standard monitoring Results Review: All pre-operative results and documents have been reviewed as part of the pre-operative evaluation. Informed Consent: The patient's anesthetic plan and its attendant risks and benefits were discussed with the patient/family/POA. Questions were solicited and answers provided to the satisfaction of the patient/family/POA.
--- NOTE | 2025-01-24 07:22 | P.HP_ITS ---
H&P: HPI History of Present Illness Date/Time: 01/24/25 07:22 Chief Complaint: Family history of colorectal cancer Narrative: This patient has family history of colorectal cancer. her sister at it 45 years old. The patient's last colonoscopy was 3 years ago, there were no polyps. Review of Systems Review of Systems: All systems reviewed & are unremarkable except as noted in HPI and below PMFSH Past Medical History Medical History (Updated 01/23/25 @ 13:37 by Jake Harris DO) CELIA (obstructive sleep apnea) Asthma Mitral valve regurgitation Body mass index (BMI) of 40.1 to 44.9 in adult Tobacco abuse Anxiety and depression Hypothyroidism, unspecified Irregular heartbeat Surgical History Surgical History History of partial hysterectomy History of right hip replacement History of left hip replacement History of lumbar fusion History of sleeve gastrectomy History of cholecystectomy History of appendectomy Family History Family History Father Family history of heart disease in male family member before age 55 Depression Family history of alcoholism Grandparent Family history of heart disease in male family member before age 55 Family history of cataracts Family history of congestive heart failure Diabetes mellitus Mother Depression Family history of arthritis Uterine carcinoma Sibling Asthma Breast cancer Cervical cancer Sibling Narcolepsy Social History Social History Smoking packs per day: 1 Smoking cigarettes per day: 20.0 Years smoked: 10 Smoking pack-years: 10.00 Smoking status: Current every day smoker Tobacco type: cigarettes Second hand tobacco smoke exposure: Yes Alcohol intake: never Substance use: current Substance use type: marijuana Last use: 01/22/2025 Living arrangements: with family Occupation/Education: occupation 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 Gender identity (if verbalized by the patient): Female Spiritual care concerns: No Agree to blood products: Yes Meds Home Medications and Allergies Home Medications ?Medication ?Instructions ?Recorded ?Confirmed ?Type levothyroxine 25 mcg tablet 25 mcg PO DAILY 10/03/19 01/24/25 History (Synthroid) [id number] 45 mg-folic 1 cap PO DAILY #90 caps 11/27/19 01/24/25 Rx acid 800 mcg-vit K 120 mcg capsule (Bariatric Multivitamins) duloxetine 60 mg capsule,delayed 60 mg PO DAILY 02/03/22 01/24/25 History release (Cymbalta) lidocaine 5 % topical ointment 1 applic topical BID PRN knee pain 03/06/22 01/23/25 Rx #60 grams vilazodone 40 mg tablet (Viibryd) 40 mg PO DAILY 08/02/23 01/24/25 History clindamycin 1 %-benzoyl peroxide 5 1 applic topical BID #25 grams 09/07/23 01/24/25 Rx % topical gel tolterodine 4 mg capsule,extended mg PO 04/03/24 09/04/24 History release 24 hr albuterol sulfate 90 mcg/actuation 1 inh inhalation Q4H PRN 05/29/24 01/22/25 Rx aerosol inhaler bronchospasm #6.7 grams celecoxib 200 mg capsule (Celebrex) 200 mg PO BID #60 caps 05/29/24 01/22/25 Rx brexpiprazole 0.5 mg tablet 1 mg PO DAILY 06/20/24 01/24/25 History (Rexulti) duloxetine 30 mg capsule,delayed 30 mg PO DAILY 06/20/24 01/24/25 History release methotrexate sodium 2.5 mg tablet 2.5 mg PO WEEKLY 09/04/24 01/24/25 History prednisone 5 mg tablet 5 mg PO DAILY PRN pain 09/04/24 01/23/25 History tramadol 50 mg tablet 50 mg PO TID PRN pain 09/04/24 01/23/25 History valacyclovir 1 gram tablet 1,000 mg PO Q8H #21 tabs 09/04/24 01/24/25 Rx (Valtrex) omeprazole 20 mg capsule,delayed 20 mg PO BID #60 caps 09/24/24 01/24/25 Rx release tirzepatide (weight loss) 2.5 2.5 mg (0.5 mL) subcut WEEKLY #2 mL 11/17/24 01/24/25 Rx mg/0.5 mL subcutaneous pen injector (Zepbound) tretinoin 0.1 % topical cream 1 applic topical QHS #20 grams 11/17/24 01/24/25 Rx ubrogepant 100 mg tablet (Ubrelvy) 100 mg PO ONCE #10 tabs 11/17/24 01/23/25 Rx baclofen 10 mg tablet 10 mg PO TID #90 tabs 12/11/24 01/24/25 Rx pregabalin 150 mg capsule (Lyrica) 150 mg PO TID #90 caps 12/11/24 01/24/25 Rx nicotine 21 mg/24 hr daily 1 patch transdermal DAILY #28 ea 01/16/25 01/24/25 Rx transdermal patch (Nicoderm CQ) etanercept 50 mg/mL (1 mL) 50 mg subcut WEEKLY 01/23/25 01/24/25 History subcutaneous pen injector (Enbrel SureClick) meloxicam 7.5 mg tablet 7.5 mg PO DAILY 01/23/25 01/24/25 History mirabegron 50 mg tablet,extended 50 mg PO Q24H 01/23/25 01/24/25 History release 24 hr Allergies Allergy/AdvReac Type Severity Reaction Status Date / Time adhesive tape Allergy Intermediate Rash Verified 01/24/25 06:15 NSAIDS (Non-Steroidal Allergy Unknown Unknown Verified 01/24/25 06:15 Anti-Inflamma Vital Signs Vital Signs - 24 hr 01/24/25 06:19 Temperature 97 F L Pulse Rate 80 Respiratory Rate 18 Blood Pressure 137/86 Pulse Oximetry 96 Oxygen Delivery Room Air Exam Const: General: cooperative and healthy appearing Resp: Effort & Inspection: normal respiratory effort and able to speak in complete sentences Auscultation: clear to auscultation bilaterally Cardio: Rate: regular rate Rhythm: regular rhythm GI: Inspection: normal to inspection GI Palp: No No hepatosplenomegaly present Auscultation: normal bowel sounds Rectal Exam: deferred Skin: General skin exam: normal color Psych: Appearance: grossly normal Mental Status: mental status grossly normal Assessment and Plan Assessment and plan (1) Family hx of colon cancer: Code(s): Z80.0 - Family history of malignant neoplasm of digestive organs Status: Acute Assessment and Plan: The patient is deemed a good candidate for the procedure. Consent signed. Will proceed.
[2025-01-24 07:44] VITALS: BP 97/51; PULSE 67; RESP 18; O2SAT 100
[2025-01-24 07:54] VITALS: BP 105/59; PULSE 69; RESP 18; O2SAT 98
[2025-01-24 08:02] VITALS: BP 129/79; PULSE 79; RESP 18; O2SAT 99
== END 2025-01-24 08:20 | disposition home or self-care (01) ==
PROVIDERS: PCP Family Medicine; Referring Provider Internal Medicine Gastroenterology; Visit Provider Internal Medicine Gastroenterology
PROC: 0DJD8ZZ Inspection of Lower Intestinal Tract, Via Natural or Artificial Opening Endoscopic (ICD-10-PCS; CPT 45378; principal; 2025-01-24 07:30)
DX: Z12.11 Encounter for screening for malignant neoplasm of colon (principal); K57.30 Diverticulosis of large intestine without perforation or abscess without bleeding; E03.9 Hypothyroidism, unspecified; G47.33 Obstructive sleep apnea (adult) (pediatric); J45.909 Unspecified asthma, uncomplicated; I34.0 Nonrheumatic mitral (valve) insufficiency; F41.8 Other specified anxiety disorders; R00.9 Unspecified abnormalities of heart beat; F12.90 Cannabis use, unspecified, uncomplicated; F17.210 Nicotine dependence, cigarettes, uncomplicated; E66.01 Morbid (severe) obesity due to excess calories; Z68.41 Body mass index [BMI] 40.0-44.9, adult; Z79.51 Long term (current) use of inhaled steroids; Z79.1 Long term (current) use of non-steroidal anti-inflammatories (NSAID); Z79.52 Long term (current) use of systemic steroids; Z79.891 Long term (current) use of opiate analgesic; Z79.85 Long-term (current) use of injectable non-insulin antidiabetic drugs; Z98.890 Other specified postprocedural states; Z98.1 Arthrodesis status; Z98.84 Bariatric surgery status; Z90.49 Acquired absence of other specified parts of digestive tract; Z80.0 Family history of malignant neoplasm of digestive organs; Z80.3 Family history of malignant neoplasm of breast; Z80.49 Family history of malignant neoplasm of other genital organs; Z82.49 Family history of ischemic heart disease and other diseases of the circulatory system
CPT/HCPCS: 45378; J2003; J2704; J7120